=== PATIENT | male | born 1990 | race Hispanic/Latino ===

== ENCOUNTER 2020-10-27 17:16 | Emergency (ER) | payer OTHER ==
[~2020-10-27] VITALS: Ht 177.8 cm; Wt 113.8 kg
[2020-10-27 19:06] LABS: BASO # 0.1 10^3/uL (0.0-0.2); BASO % 0.7 % (0.0-1.0); EOS # 0.1 10^3/uL (0.0-0.5); EOS % 1.1 % (0.0-3.0); HEMATOCRIT 44.5 % (42.0-52.0); HEMOGLOBIN 14.6 g/dl (13.5-17.5); LYMPH # 2.5 10^3/uL (1.5-5.0); LYMPH % 33.8 % (24.0-44.0); MEAN CORPUSCULAR HGB CONC 32.8 g/dl (32.0-36.5); MEAN CORPUSCULAR VOLUME 82.3 fl (80.0-96.0); MONO # 0.7 10^3/uL (0.0-0.8); MONO % 9.8 % (0.0-5.0); NEUTROPHILS % 54.2 % (36.0-66.0); PLATELET COUNT, AUTOMATED 247 10^3/uL (150-450); RED BLOOD COUNT 5.41 10^6/uL (4.30-6.10); WHITE BLOOD COUNT 7.3 10^3/uL (4.0-10.0)
--- NOTE | 2020-10-27 19:07 | REP ---
INDICATION: chest pressure. COMPARISON: No comparison study. TECHNIQUE: Portable upright AP chest radiograph. FINDINGS: The lungs are well inflated and free of infiltrate. Pleural angles are sharp. Heart size is normal. Pulmonary vasculature is not increased. IMPRESSION: No active disease. <Electronically signed by Dajuan Arevalo > 10/27/20 2182
--- NOTE | 2020-10-27 19:20 | ECGEPIP ---
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
[2020-10-27] MEDS ORDERED: NS 1,000 ML IV ONE ×2 (20:00→22:15)
[2020-10-27] MEDS ORDERED: ISOVUE-370 76% 100ML VIAL As Ordered ONE (20:05)
[2020-10-27] MEDS ORDERED: KETOROLAC 30 MG/ML 1ML VIAL IV ONE (20:15)
--- NOTE | 2020-10-27 21:53 | REPVR ---
PROCEDURE INFORMATION: Exam: CT Angiography Chest With Contrast Exam date and time: 10/27/2020 8:56 PM Age: 30 years old Clinical indication: Chest pain TECHNIQUE: Imaging protocol: Computed tomographic angiography of the chest with intravenous contrast. 3D rendering (Not supervised by radiologist): MIP and/or 3D reconstructed images were created by the technologist. Radiation optimization: All CT scans at this facility use at least one of these dose optimization techniques: automated exposure control; mA and/or kV adjustment per patient size (includes targeted exams where dose is matched to clinical indication); or iterative reconstruction. Contrast material: ISOVUE 370; Contrast volume: 75 ml; Contrast route: INTRAVENOUS (IV); COMPARISON: CO PORTABLE CHEST X-RAY 10/27/2020 6:33 PM FINDINGS: Pulmonary arteries: No central pulmonary embolism is seen. Evaluation of some peripheral pulmonary arteries is limited due to excessive motion. Aorta: Unremarkable. No aortic aneurysm. No aortic dissection. Lungs: Unremarkable. No consolidation. No masses. Pleural spaces: Unremarkable. No pneumothorax. No pleural effusion. Heart: Unremarkable. No cardiomegaly. No pericardial effusion. Lymph nodes: Unremarkable. No enlarged lymph nodes. Bones/joints: Unremarkable. No acute fracture. Soft tissues: Unremarkable. IMPRESSION: No acute findings. Electronically signed by: Julien Rendon On 10/27/2020 21:52:59 PM
[2020-10-27 22:43] VITALS: O2SAT 99
[2020-10-27 22:55] VITALS: BP 130/93
--- NOTE | 2020-10-28 20:22 | ECGEPIP ---
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
== END 2020-10-27 23:01 | disposition home or self-care (01) ==
LOC: M ED 17:16
DX: I95.1 Orthostatic hypotension (principal); I45.10 Unspecified right bundle-branch block; I10 Essential (primary) hypertension
CPT/HCPCS: 71045; 71275; 80047; 84484; 85025; 85379; 93005; 96361; 96374; 99284; J1885; Q9967

== ENCOUNTER 2020-11-03 10:28 | Emergency (ER) | payer OTHER ==
[~2020-11-03] VITALS: Ht 180.3 cm; Wt 109.1 kg
[2020-11-03] MEDS ORDERED: GI COCKTAIL 50ML BTL(HYOSCYAMINE/MAALOX/LIDOCAINE VISCOUS)(1:3:1) PO ONE (11:15)
--- NOTE | 2020-11-03 11:37 | REP ---
INDICATION: CHEST PAIN. COMPARISON: Comparison chest x-ray 27 October 2020. TECHNIQUE: Portable upright AP chest radiograph. FINDINGS: The lungs are well inflated and free of infiltrate. Pleural angles are sharp. Heart size is normal. Pulmonary vasculature is not increased. Monitoring electrodes and a metallic change overlie the chest. IMPRESSION: No active disease. <Electronically signed by Dajuan Arevalo > 11/03/20 2085
[2020-11-03 11:39] LABS: BASO % 0.5 % (0.0-1.0); EOS # 0.1 10^3/uL (0.0-0.5); EOS % 2.2 % (0.0-3.0); HEMATOCRIT 43.9 % (42.0-52.0); HEMOGLOBIN 14.3 g/dl (13.5-17.5); LYMPH # 1.7 10^3/uL (1.5-5.0); LYMPH % 29.6 % (24.0-44.0); MEAN CORPUSCULAR HEMOGLOBIN 26.8 pg (27.0-33.0); MEAN CORPUSCULAR HGB CONC 32.6 g/dl (32.0-36.5); MEAN CORPUSCULAR VOLUME 82.4 fl (80.0-96.0); MONO # 0.5 10^3/uL (0.0-0.8); MONO % 7.7 % (0.0-5.0); NEUTROPHILS # 3.5 10^3/uL (1.5-8.5); NEUTROPHILS % 59.7 % (36.0-66.0); PLATELET COUNT, AUTOMATED 243 10^3/uL (150-450); RED BLOOD COUNT 5.33 10^6/uL (4.30-6.10); WHITE BLOOD COUNT 5.8 10^3/uL (4.0-10.0)
[2020-11-03 11:50] LABS: INR 0.94; PROTHROMBIN TIME 12.8 SECONDS (12.5-14.3)
[2020-11-03 11:51] LABS: PARTIAL THROMBOPLASTIN TIME 27.1 SECONDS (24.2-38.5)
[2020-11-03 11:53] LABS: D-DIMER QUANT 479.95 ng/ml (<500)
[2020-11-03 12:18] LABS: ALBUMIN 4.1 GM/DL (3.2-5.2); ALT/SGPT 36 U/L (12-78); BILIRUBIN,DIRECT 0.2 MG/DL (0.0-0.2); BILIRUBIN,TOTAL 0.7 MG/DL (0.2-1.0); BLOOD UREA NITROGEN 16 MG/DL (7-18); CALCIUM LEVEL 9.4 MG/DL (8.5-10.1); CARBON DIOXIDE LEVEL 29 MEQ/L (21-32); CHLORIDE LEVEL 108 MEQ/L (98-107); CK-MB VALUE MASS < 1.0 NG/ML (<3.6); CPK CREATINE PHOSPHOKINASE 109 U/L (39-308); CREATININE FOR GFR 0.93 MG/DL (0.70-1.30); FREE T4 1.02 NG/DL (0.76-1.46); GLOMERULAR FILTRATION RATE > 60.0 (>60); GLUCOSE, FASTING 92 MG/DL (70-100); LIPASE 91 U/L (73-393); MB/CK RELATIVE INDEX 0.92 (< OR =4); NT-PRO BNP 11 PG/ML (<125); POTASSIUM SERUM 4.1 MEQ/L (3.5-5.1); SODIUM LEVEL 142 MEQ/L (136-145); TOTAL PROTEIN 7.7 GM/DL (6.4-8.2); TROPONIN I < 0.02 NG/ML (< 0.10)
[2020-11-03] MEDS ORDERED: METAL LOCK LOOP XX ONE (12:49)
[2020-11-03] MEDS ORDERED: KETOROLAC 30 MG/ML 1ML VIAL IV ONE (13:45)
[2020-11-03 15:46] LABS: CK-MB VALUE MASS < 1.0 NG/ML (<3.6); CPK CREATINE PHOSPHOKINASE 106 U/L (39-308); MB/CK RELATIVE INDEX 0.94 (< OR =4); TROPONIN I < 0.02 NG/ML (< 0.10)
[2020-11-03] MEDS ORDERED: KETO10TAB PO ×2 (16:55→17:19)
[2020-11-03] MEDS ORDERED: SUCR1TA PO ×2 (16:55→17:19)
[2020-11-03] MEDS ORDERED: OMEP40CA97 PO ×2 (16:55→17:19)
[2020-11-03 17:11] VITALS: BP 137/74
--- NOTE | 2020-11-04 07:33 | ECGEPIP ---
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
--- NOTE | 2020-11-04 07:40 | ECGEPIP ---
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
== END 2020-11-03 17:18 | disposition home or self-care (01) ==
LOC: M ED 10:28 → EDBD 10:28 → M ED 17:18
DX: R07.9 Chest pain, unspecified (principal); I45.10 Unspecified right bundle-branch block; I10 Essential (primary) hypertension
CPT/HCPCS: 71045; 80048; 80076; 82550; 82553; 83690; 83880; 84439; 84443; 84484; 85025; 85379; 85610; 85730; 93005; 93041; 94760; 96374; 99285; J1885

== ENCOUNTER → 2020-11-15 | Outpatient (CLI) | payer OTHER ==
[~2020-11-15] MED LIST: KETO10TAB PO; OMEP40CA97 PO; SUCR1TA PO
--- NOTE | 2020-11-16 15:35 | SLEEPHOME ---
DATE: 11/15/2020 ORDERED BY: Pramod Gambino MD Diagnostic home sleep testing was performed due to concern for the obstructive sleep apnea syndrome. For testing, a nocturnal T3 respiratory monitoring device was used. Continuous record was made of pulse, oxygen saturation, air flow, chest and abdominal strain, and body position. Nine hours and 54 minutes of data were reviewed. There were 6 hours and 21 minutes marked as time in bed. During the interval marked time in bed, there were 38 respiratory events identified of 10 seconds in duration or greater for a respiratory event index of 6. The events were primarily obstructive. Baseline pulse rate was 64. Pulse rate ranged 50 to 186. Baseline saturation was 94%. Saturations fell to 83% and testing was performed in both the supine and nonsupine positions. IMPRESSION: Abnormal home sleep testing with repetitive respiratory events and oxygen desaturations to 83% with a respiratory event index of 6 is consistent with the obstructive sleep apnea syndrome. RECOMMENDATION: The patient should be encouraged to undergo a formal sleep evaluation.
== END ==
LOC: M SLEEP HO 10:26
PROVIDERS: ATTEND Internal Medicine Cardiovascular Disease
DX: R06.83 Snoring (principal)

== ENCOUNTER → 2021-01-03 | Outpatient (REF) | payer OTHER ==
[2021-01-03 13:18] LABS: SEMEN APPEARANCE OPAQUE (OPAQUE)
[2021-01-03 13:19] LABS: SEMEN VISCOSITY LIQUID (LIQUID); SEMEN VOLUME 1.2 ml (2.0-5.0); WBC CONCENTRATION >1 M/ml (<=1 M/ml)
[2021-01-03 13:20] LABS: SPERM CONCENTRATION 13.8 M/ml (>=15.0)
== END ==
LOC: M SMT 13:10
PROVIDERS: ATTEND Obstetrics & Gynecology
DX: N46.8 Other male infertility (principal)

== ENCOUNTER → 2021-07-12 | Outpatient (CLI) | payer OTHER ==
[~2021-07-12] MED LIST changes: +OMEP40CA4 PO; -OMEP40CA97 PO; +ZITHTAB2 PO
--- NOTE | 2021-07-12 09:55 | REP ---
INDICATION: RUQ PAIN COMPARISON: None. TECHNIQUE: Real time calvillo scale ultrasound examination using curved array transducer. FINDINGS: Liver is normal in contour, size, and echogenicity without focal hepatic lesions identified. Pancreas is incompletely evaluated due to interposed bowel gas. The gallbladder is normal and without gallstones, wall thickening, or pericholecystic fluid. No biliary ductal dilatation is appreciated and the common bile duct measures 3.0 mm diameter. Right kidney is normal in reniform shape without hydronephrosis and measures 11.4 x 6.5 x 7.5 cm. No ascites in the visualized right upper quadrant. IMPRESSION: Normal limited right upper quadrant ultrasound <Electronically signed by Pablo Riggins > 07/12/21 0936
== END ==
LOC: M RAD 07:07
PROVIDERS: ATTEND Physician Assistant Medical
DX: R10.11 Right upper quadrant pain (principal)

== ENCOUNTER 2021-07-16 17:53 | Emergency (ER) | payer OTHER ==
[~2021-07-16] VITALS: Ht 177.8 cm; Wt 117.5 kg
--- OUTSIDE RECORDS SUMMARY | 2021-07-16 17:57 | CCD | Continuity of Care Document ---
Author Author Joe CLEVELAND RPA Organization Unknown Address [address] [place] [address], [address] [place] [address] Phone [phone] Care Team Providers Care Animator Name Role Phone Parmjit Valera P.A.-C. AUTM [phone] Franca Martínez AUTM [phone] Problems Active Problems Provider Date Essential hypertension KASHMIR Burk Onset: Social History Type Date Description Comments Sex Unknown ETOH Use Denies alcohol use Tobacco Use Start: Unknown Non Smoker Allergies, Adverse Reactions, Alerts Description No Known Drug Allergies Medications Active Medications SIG Qnty Indications Ordering Provide r Date Colace 100mg Capsules take one capsule by mouth daily. 30caps K21.9 Pramod Manley MD 06/28/2021 Lisinopril-Hydrochlorothiazide 20-12.5mg Tablets 1tab qd Unknown Naproxen 250mg Tablets prn Unknown Methocarbamol 500mg Tablets 1 tab qd Unknown Omeprazole 40mg Capsules DR 1 cap qd Unknown Ondansetron HCL 4mg Tablets 1tab qd prn Unknown Immunizations Description No Information Available Vital Signs Date Vital Result Comment 06/28/2021 1:56pm BP Systolic 124 mmHg BP Diastolic 82 mmHg Height 70 inches 5'10" Weight 256.00 lb BMI (Body Mass Index) 36.7 kg/m2 [place] Body Weight 166 lb Weight 116.122 kg BSA (Body Surface Area) 2.32 m2 Results Description No Information Available Procedures Description No Information Available Medical Devices Description No Information Available Encounters Description No Information Available Assessments Date Code Description Provider 06/28/2021 K21.9 Gastro-esophageal reflux disease without esophagitis Yee Patel SHRUTHI [facility] 06/28/2021 R07.9 Chest pain, unspecified Yee Patel KASHMIR [place] 06/28/2021 R10.11 Right upper quadrant pain Jo Patel SHRUTHI [facility] 06/28/2021 F45.8 Other somatoform disorders Елена rosenbaum KASHMIR Powell Plan of Treatment 06/28/2021 - [facility] K21.9 Gastro-esophageal reflux disease without esophagitis * R07.9 Chest pain, unspecified * R10.11 Right upper quadrant pain * F45.8 Other somatoform disorders * * New Medication:* Colace 100 mg * New Orders:* Endoscopy, Ordered: 06/28/21 * Comments:* Will arrange for upper endoscopy. Reviewed risks and benefits of the procedure, as well as other options, with the patient. Prep for this procedure was discussed with patient. Patient verbalized understanding of all of the above and is in agreement to proceed. Patient will seek medical attention for any acute changes. Will monitor. * Follow up:* As scheduled, sooner if needed. Functional Status Description No Information Available Mental Status Description No Information Available Referrals Refer to Reason for Referral Status Appt Date Marko Wetzel M.D. GERD 1 NEW 04/28 TO 10/25, 3 ESTABLISH 04/28/21 TO 04/28/22 Scheduled 06/28/2021 [facility] [address] [facility], [place] [id number] [phone]
--- OUTSIDE RECORDS SUMMARY | 2021-07-16 17:57 | CCD | Continuity of Care Document ---
Author Author Joe CLEVELAND RPA Organization Unknown Address [address] [place] [address], [address] [place] [address] Phone [phone] Care Team Providers Care Tar Roofer Name Role Phone Parmjit Valera P.A.-C. AUTM [phone] rFanca Martínez AUTM [phone] Problems Active Problems Provider Date Essential hypertension [...] lb BMI (Body Mass Index) 36.7 kg/m2 [place] Body Weight 166 lb Weight 116.122 kg [...] of Treatment 06/28[facility]2021 [facility] K[facility]9 Gastro-esophageal reflux disease without esophagitis * [...] 3 ESTABLISH 04/28/21 TO 04/28/22 Scheduled 06/28/2021 [facility] [address] [facility], [place] [id number] [phone]
--- OUTSIDE RECORDS SUMMARY | 2021-07-16 17:58 | CCD ---
Author Author [facility] Organization [facility] Address Unknown Phone Unavailable Care Team Providers Care Mainspring Torque Tester Name Role Phone Taran WEATHERS Unavailable Unavailable DETTMAN L LARRY Unavailable Unavailable TURRIN, REJI Unavailable Unavailable TURRIN, REJI Unavailable Unavailable TURRIN, REJI Unavailable Unavailable TURRIN, REJI Unavailable Unavailable ANTECOL, Ruben MCCARTHY MD Unavailable Unavailable ANTECOL, Ruben MCCARTHY MD Unavailable Unavailable ANTECOL, Ruben MCCARTHY MD Unavailable Unavailable ANTECOL, Ruben MCCARTHY MD Unavailable Unavailable ANTECOL, Ruben MCCARTHY MD Unavailable Unavailable ANTECOL, Ruben MCCARTHY MD Unavailable Unavailable ANTECOL, Ruben MCCARTHY MD Unavailable Unavailable ANTECOLRuben MD Unavailable Unavailable ANTECOL, Ruben MCCARTHY MD Unavailable Unavailable ANTECOLRuben MD Unavailable Unavailable ANTECOLRuben MD Unavailable Unavailable ANTECOLRuben MD Unavailable Unavailable ANTECOLRuben MD Unavailable Unavailable ANTECOLRuben MD Unavailable Unavailable ANTECOLRuben MD Unavailable Unavailable ANTECOLRuben MD Unavailable Unavailable ANTECOLRuben MD Unavailable Unavailable ANTECOLRuben MD Unavailable Unavailable ANTECOLRuben MD Unavailable Unavailable ANTECOLRuben MD Unavailable Unavailable ANTECOLRuben MD Unavailable Unavailable ANTECOLRuben MD Unavailable Unavailable ANTECOLRuben MD Unavailable Unavailable ANTECOLRuben MD Unavailable Unavailable ANTECOLRuben MD Unavailable Unavailable ANTECOL, Ruben MCCARTHY MD Unavailable Unavailable ANTECOLRuben MD Unavailable Unavailable ANTECOLRuben MD Unavailable Unavailable ANTECOL, Ruben MCCARTHY MD Unavailable Unavailable ANTECOL, Ruben MCCARTHY MD Unavailable Unavailable ANTECOLRuben MD Unavailable Unavailable ANTECOL, Ruben MCCARTHY MD Unavailable Unavailable ANTECOL, Ruben MCCARTHY MD Unavailable Unavailable ANTECOL, Ruben MCCARTHY MD Unavailable Unavailable ANTECOL, Ruben MCCARTHY MD Unavailable Unavailable ANTECOL, Ruben MCCARTHY MD Unavailable Unavailable ANTECOL, Ruben MCCARTHY MD Unavailable Unavailable ANTECOL, Ruben MCCARTHY MD Unavailable Unavailable ANTECOL, Ruben MCCARTHY MD Unavailable Unavailable ANTECOL, Ruben MCCARTHY MD Unavailable Unavailable ANTECOL, Ruben MCCARTHY MD Unavailable Unavailable ANTECOL, Ruben MCCARTHY MD Unavailable Unavailable ANTECOL, Ruben MCCARTHY MD Unavailable Unavailable ANTECOL, Ruben MCCARTHY MD Unavailable Unavailable ANTECOL, Ruben MCCARTHY MD Unavailable Unavailable ANTECOL, Ruben MCCARTHY MD Unavailable Unavailable ANTECOL, Ruben FABIO MD Unavailable Unavailable ANTECOL, Ruben FABIO GUERRERO Unavailable Unavailable ANTECOL, Ruben FABIO GUERRERO Unavailable Unavailable ANTECOL, Ruben FABIO GUERRERO Unavailable Unavailable ANTECOL, Ruben MCCARTHY MD Unavailable Unavailable ANTECOL, Ruben FABIO GUERRERO Unavailable Unavailable ANTECOL, Ruben FABIO GUERRERO Unavailable Unavailable ANTECOL, Ruben FABIO GUERRERO Unavailable Unavailable Re-disclosure Warning The records that you are about to access may contain information from federally-assisted alcohol or drug abuse programs. If such information is present, then the following federally mandated warning applies: This information has been disclosed to you from records protected by federal confidentiality rules (42 CFR part 2). The federal rules prohibit you from making any further disclosure of this information unless further disclosure is expressly permitted by the written consent of the person to whom it pertains or as otherwise permitted by 42 CFR part 2. A general authorization for the release of medical or other information is NOT sufficient for this purpose. The Federal rules restrict any use of the information to criminally investigate or prosecute any alcohol or drug abuse patient.The records that you are about to access may contain highly sensitive health information, the redisclosure of which is protected by Article 27-F of the [facility] Public Health law. If you continue you may have access to information: Regarding HIV / AIDS; Provided by facilities licensed or operated by the [facility] Office of Mental Health; or Provided by the [facility] Office for People With Developmental Disabilities. If such information is present, then the following [facility] mandated warning applies: This information has been disclosed to you from confidential records which are protected by state law. State law prohibits you from making any further disclosure of this information without the specific written consent of the person to whom it pertains, or as otherwise permitted by law. Any unauthorized further disclosure in violation of state law may result in a fine or long term sentence or both. A general authorization for the release of medical or other information is NOT sufficient authorization for further disc losure. Encounters Encounter Providers Location Date Indications Data Source(s ) Emergency Attender: REJI YANGConsultant: LARRY BARRETO 05/02/2021 02:06:00 PM EDT - 05/02/2021 07:35:00 PM EDT [facility] Patient discharged. Outpatient Attender: LARRY MADRIDANConsultant: LARRY MADRID AN 03/14/2021 07:17:00 AM EDT - 03/14/2021 08:17:00 AM EDT [facility] Patient discharged. Outpatient Attender: FABIO LOPEZ MD Main Office 11/05/2020 09:00:00 AM EST [facility] ([facility]) Immunizations Vaccine Date Status Description Data Source(s) COVID-19 VACCINE Pfizer 11/10/2020 12:00:00 AM EST completed [facility] Vaccine Series Complete: NOThis Data was Submitted to [facility] Via [employer]. Medications Medication Brand Name Start Date Product Form Dose Route Admi nistrative Instructions Pharmacy Instructions Status Indications Reaction Description Data Source(s) Docusate Sodium 100 MG Oral Capsule [Colace] Colace 12:00:00 AM EDT ORAL active [facility] ( [facility], ) Lisinopril 10 MG Oral Tablet Lisinopril 12/26/2020 12:00:00 AM EDT ORAL active [facility] ([facility]) Omeprazole 40 MG Delayed Release Oral Capsule Omeprazole 11/04/2020 12:00:00 AM EST ORAL active [facility] ([facility]) Ketorolac Tromethamine 10 MG Oral Tablet Ketorolac Trometham ine 11/04/2020 12:00:00 AM EST ORAL active [facility] ([facility]) Sucralfate 1000 MG Oral Tablet Sucralfate 11/04/2020 12:00:00 AM EST ORAL active [facility] ([facility]) Insurance Providers Payer name Policy type / Coverage type Policy ID Covered democrat ID Covered democrat's relationship to mckee Policy Mckee Plan Information [facility] [employer] [employer] [id number] [facility] O/P [id number] Problems, Conditions, and Diagnoses Code Display Name Description Problem Type Effective Dates Data Source(s) I10 Essential (primary) hypertension Essential (primary) h ypertension Diagnosis 05/02/2021 02:06:00 PM EDT [facility] I4519 Other right bundle-branch block Other right bundle-bra nch block Diagnosis 05/02/2021 02:06:00 PM EDT [facility] K219 Gastro-esophageal reflux disease without esophagitis Gastro-esophageal reflux disease without esophagitis Diagnosis 05/02/2021 02:06:00 PM ED T [facility] R0789 Other chest pain Other chest pain Diagnosis 05/02/2021 02 :06:00 PM EDT [facility] R2241 Localized swelling, mass and lump, right lower limb Localized swelling, mass and lump, right lower limb Diagnosis 03/14/2021 07:17:00 AM EDT [facility] G68350 Pain in right lower leg Pain in right lower leg Diagno sis 03/14/2021 07:17:00 AM EDT [facility] [id number] Essential hypertension Essential hypertension Problem 06/10/2021 12:00:00 AM EDT [facility] ([facility], ) Surgeries/Procedures Procedure Description Date Indications Data Source(s) Polysomnography Sleep Staging 4+ Parameters W/Cpap 03/08/2021 12:00:00 AM EDT [facility] ([facility], ) XTRNL ECG < 48 HR RECORDING 03/03/2021 12:00:00 AM EDT [facility] ([facility]) XTRNL ECG CONTINUOUS RHYTHM PHYS REVIEW&INTERPJ 2020 12:00:00 AM EDT [facility] ([facility]) Polysomnography Sleep Staging 4+ Parameters 01/17/2021 12:00:00 AM EDT [facility] ([facility], ) CV STRS TST XERS&/OR RX CONT ECG PHYS SI&R 01/05/2021 12:00:00 AM EDT [facility] ECHO TTHRC R-T 2D W/WOM-MODE COMPL SPEC&COLR DOP 12/28 12:00:00 AM EDT [facility] Ambulatory Blood Pressure Monitoring;Recording,Scanning,Inte r,RPT 12/27/2020 12:00:00 AM EDT [facility]) ECG ROUTINE ECG W/LEAST 12 LDS W/I&R 11/05/2020 12:00: 00 AM EST [facility] Results ID Date Data Source [id number] 05/24/2021 03:18:00 PM EDT [facility] Name Value Range Interpretation Code Description Data Reina rce(s) Supporting Document(s) SARS coronavirus 2 RNA Not Detected [facility] [place] This lab was ordered by [facility] and reported by [employer]. ID Date Data Source [id number] 05/03/2021 08:18:00 AM EDT [facility] [address] [place] [address] PHONE: [phone] FAX: [phone] Name .................. : SELENE YE Acct Number.................. : [id number] [facility]......... [facility] Number ................... : [id number] Stay type ............. : E/R Discharge Date......... ... : Admit Date ......... : 05/02/21 Admit Phys .................... : CELIA VALENZUELA Date of ....... : 1990 Family Phys ................... : JASIEL LICONA Phone .................. : [phone] Age ................................ : 30 Film# .................. .:[id number] Sex ................................. : M Unsigned transcriptions are preliminary reports and do not represent a medical or legal document CT CTA CHEST NON-CORONARY Chanel Cha 12371 COMPLETE:05/02/21 17:57 [facility] [address] Reason(s): CP, high d-dimer CT CHEST WITH IV CONTRAST INDICATION: Chest pain. Elevated d-dimer. Rule out PE. COMPARISON: None CONTRAST: 75 cc Isovue-370 One or more of the following dose reduction techniques were utilized in effectively lowering the patient's radiation dose for this examination: Automated Exposure Control, Adjustment of the mA and/or kV according to patient size, or Iterative reconstruction. FINDINGS: VASCULAR: There is adequate visualization of the central pulmonary arterial tree to the segmental branch level. No large central emboli. Peripheral branches are less well enhanced limiting sensitivity. No s mall peripheral emboli are identified. No thoracic aortic aneurysm. Allowing for pulsation artifact dissection. LUNGS: Basilar airspace opacity minimal on the left typical of atelectasis. More confluent in the right posterior lateral costophrenic angle probably atelectasis with pneumonia not excluded. PLEURA AND PERICARDIUM: No pleural or pericardial effusions. MEDIASTINUM AND SHOBHA: Hazy density anterior mediastinum likely residual thymic tissue. No adenopathy. CHEST WALL: No axillary adenopathy. Skeletal structures are within normal limits. Mild multilevel degenerative disc change. Small sclerotic focus in the posterior right T6 vertebral body most likely benign bone island. Mild T10 superior endplate compression does not appear acute. Page 1 of 2 [facility] [address] [place] [address] PHONE: [phone] FAX: [phone] Name .................. : SELENE YE Acct Number.................. : [id number] ROOM. ................. : TR-08 MR Number ................... : [id number] Stay type ............. : E/R Discharge Date......... ... : Admit Date ......... : 05/02/21 Admit Phys .................... : CELIA VALENZUELA Date of ....... : 1990 Family Phys ................... : JASIEL DA Phone .................. : [phone] Age ................................ : 30 Film# .................. .:[id number] Sex ............... .................. : M Unsigned transcriptions are preliminary reports and do not represent a medical or legal document CT CTA CHEST NON-CORONARY W C 86689 COMPLETE:05/02/21 17:57 [facility] 41435 Reason(s): CP, high d-dimer UPPER ABDOMEN: Unremarkable. IMPRESSION: No pulmonary embolic disease is identified. Bibasilar airspace opacity probably atelectasis. Slightly more confluent on the right with pneumonia not excluded definitively. Electronically Reviewed and Signed By Santi Wilson MD , 05/03/21 08:18, JOHNB Transcribe Initials: KAI , Transcribe Date: 05/02/21 19:18, Dictation Date: Copy for: EMERGENCY DEPT via modem Copy for: 710 MED REC DISCHARGED Page 2 of 2 Name Value Range Interpretation Code Description Data Reina rce(s) Supporting Document(s) ID Date Data Source [id number] 05/03/2021 08:17:00 AM EDT [facility] [address] [place] [address] PHONE: [phone] FAX: [phone] Name .................. : SELENE YE Acct Number.................. : [id number] ROOM. ................. : [address] Number ................... : [id number] Stay type ............. : E/R Discharge Date......... ... : Admit Date ......... : 05/02/21 Admit Phys .................... : CELIA VALENZUELA Date of ....... : 1990 Family Phys ................... : JASIEL DA Phone .................. : [phone] Age ................................ : 30 Film# .................. .:[id number] Sex ................................. : M Unsigned transcriptions are preliminary reports and do not represent a medical or legal document CHEST PORTABLE 66170 COMPLETE:05/02/21 18:02 AICHA 99645 Reason(s): Chest Pain PORTABLE CHEST SINGLE VIEW 2:37 PM HISTORY: Chest pain COMPARISON: None. FINDINGS: Mediastinal and hilar structures are normal. Cardiac silhouette is unremarkable. Low inspiratory volume. No pneumonia or edema. No pneumothorax or pleural effusion. IMPRESSION: Low inspiratory volume otherwise unremarkable. Electronically Reviewed and Signed By Santi Wilson MD , 05/03/21 08:17, SCB Transcribe Initials: KAI , Transcribe Date: 05/02/21 18:49, Dictation Date: Copy for: EMERGENCY DEPT via modem Copy for: 710 MED REC DISCHARGED Page 1 of 1 Name Value Range Interpretation Code Description Data Reina rce(s) Supporting Document(s) ID Date Data Source [id number] 05/02/2021 02:06:00 PM EDT [facility] 1 OrderSheet [facility] Emergency Department [address] [place] [address] Phone #: ext- [phone] 05/02/2021 14:03 Patient: EPHRAIM MORTON Sex: M : 1990 Age: 30yWEIGHT:108.8 kg (S) HEIGHT:70 inches (S) BMI:34.4ALLERGIES: No Known Drug AllergyCHIEF COMPLAINT: chest painDIAGNOSIS: Atypical chest pain, Gastroesophageal reflux diseaseLAB ORDERSOrder Description Priority Entered Acknowledged InitialedCBC w Diff STAT 14:18 05/02/2021 14:52 Reji Morris RN, M.D.;CMP STAT 14:05/02/2021 14:52 Reji Morris RN, M.D.;Lipase STAT 14:05/02/2021 14:52 Reji Morris RN, M.D.;PT/PTT STAT 14:05/02/2021 14:52 Reji Morris RN, M.D.;Troponin-T STAT 14:05/02/2021 14:52 Reji Morris RN, M.D.;D-Dimer STAT 14:18 05/02/2021 14:52 Reji Morris RN, M.D.;Troponin-T STAT 17:24 05/02/2021 17:26 Reji Morris RN, M.D.;DIAGNOSTIC STUDY ORDERSOrder Description Priority Entered Acknowledged InitialedChest Portable 1 STAT 14:18 05/02/2021 14:52 Reji Graham RN(Oxygen?(No)) Patti; Reason for Study: Chest PainCT CTA CHEST STAT 15:09 05/02/2021 15:11 Simba(NONCOR) Reji Thomas RNINC PP Patti; 2 OrderSheet [facility] Emergency Department [address] [place] [address] Phone #: ext- [phone] 05/02/2021 14:03 Patient: EPHRAIM MORTON Sex: M : 1990 Age: 30y(Oxygen?(No))(IV?(Yes)) Reason for Study: CP, high d- dimerMEDICATION/IV/DRIP/FLUID ORDERSOrder Description Priority Entered Acknowledged InitialedAspirin PO 14:18 05/02/2021 14:55 Ash Millanble 81 mg Turrin, Reji R.N.324 mg M.D.;Ativan PO 1 mg 14:18 05/02/2021 14:56 Alexandra Millanrin, Reji R.N. M.D.;Protonix IVPB 40 14:18 05/02/2021 Cancelled: Duplicate Order 14:18 Turrin,mg with Dextrose Turrin, Reji Reji M.D.100 ml spike bag M.D.;(D5W)Protonix IV Push 40 14:18 05/02/2021 14:56 Alexandra Millanmg (in 10 mL NS, Turrin, Reji R.N.administer over at M.D.;least 2 minutes,NOW x1)GENERAL ORDERSOrder Description Priority Entered Acknowledged InitialedBlood Pressure 14:18 05/02/2021 14:30 [facility] EDMonitor Reji Yang Tiffany ER M.D.; Otrt3Tolzkbi Monitor 14:18 05/02/2021 14:30 [facility](continuous) Reji Yang Tiffany ER M.D.; Eluh8QNO 1 4:18 05/02/2021 14:30 [facility] ED Reji Yang Tiffany ER M.D.; Hbiq9VZA 14:18 05/02/2021 14:43 Alexandra Millan Riccardo R.N. M.D.;Obtain Old EKG 14:18 05/02/2021 14:43 Alexandra Millan Riccardo R.N. M.D.;Obtain Old Records 14:18 05/02/2021 14:43 Alexandra Millan Riccardo R.N. M.D.;Oxygen titrate to 14:18 05/02/2021 14:43 Alexandra Millan OrderSheet [facility] Emergency Department [address] [place] [address] Phone #: ext- [phone] 05/02/2021 14:03 Patient: EPHRAIM MORTON Sex: M : 1990 Age: 30y92% Reji Yang R.N., M.D.;Pulse oximeter 14:18 05/02/2021 14:30 [facility] ED(Continuous) Reji Yang Tiffany ER M.D.; Xpvq3Gmbrjf Lock 14:18 05/02/2021 14:56 Alexandra Millan Riccardo R.N. M.D.;Vitals 14:18 05/02/2021 14:30 [facility] Reji Yang Tiffany ER M.D.; Tech1[Electronically signed by Lizbeth Brand R.N. (19:41 05/02/2021)][Electronically signed by Reji Yang M.D. (20:24 05/02/2021)][Electronically locked by Lizbeth Brand R.N. (19:41 05/02/2021)] Name Value Range Interpretation Code Description Data Reina rce(s) Supporting Document(s) ID Date Data Source [id number] 05/02/2021 02:06:00 PM EDT [place] [address] Medication Reconciliation Report [facility] Emergency Department [address] [place] [address] Phone #: ext- [phone] 05/02/2021 14:03 Patient: EPHRAIM MORTON Sex: M : 1990 Age: 30yWeight: 108.8 kgHeight/Length: 70 in.BMI: 34.4ALLERGIES: No Known Drug AllergyThe patient's Home Medications are listed below:CONTINUE TAKING THE FOLLOWING MEDICATIONS: Lisinopril-hydroCHLOROthiazide Oral, unsure of dose. started last week Naproxen Oral, daily Omeprazole OralThe source(s) of the original Home Medication information:Not obtained.The following Medications were given to the patient in the Emergency Department:ASPIRIN CHEWABLE 81 MG [PO] PO 324 mg, administered: 14:55 1Ativan [PO] PO 1 mg, administered: 14:55 1PROTONIX [IVP] IVP 40 mg, administered: 14:56 05/02/2021The following Medications were prescribed to the patient:None. Name Value Range Interpretation Code Description Data Reina rce(s) Supporting Document(s) ID Date Data Source [id number] 05/02/2021 02:06:00 PM EDT [facility] 1 Medication Administration Record [facility] Emergency Department [address] [place] [address] Phone #: ext- [phone] 05/02/2021 14:03 Patient: EPHRAIM MORTON Sex: M : 1990 Age: 30yWeight: 108.8 kgHeight/Length: 70 inBMI: 34.4ALLERGIES: No Known Drug Allergy Date/Time Medication Administered Medication OrderedGiven ASPIRIN CHEWABLE 81 MG [PO] Aspirin PO Chewable 81 mg 02475:55 05/02/2021 Dose: 324 mg Tablets PO mgAlexandra Millan R.N.Given ATIVAN [PO] (LORAZEPAM) Ativan PO 1 mg14:55 05/02/2021 Dose: 1 mg Tablets Alexandra Gallego R.N.Given PROTONIX [IVP] (PANTOPRAZOLE Protonix IV Push 40 mg (in 10 mL14:56 05/02/2021 SODIUM) NS, administer over at least 2RAlexandra collier R.N. Dose: 40 mg IVP minutes, NOW x1) Site: #1 left Name Value Range Interpretation Code Description Data Reina rce(s) Supporting Document(s) ID Date Data Source [id number] 05/02/2021 02:06:00 PM EDT [facility] 1 General Instructions [facility] Emergency Department [address] [place] [address] Phone #: ext- [phone] 05/02/2021 14:03 Patient: EPHRAIM MORTON Sex: M : 1990 Age: 30yAtypical chest pain (non-cardiac).Gastroesophageal reflux disease. No esophagitis.INSTRUCTIONSAvoid stimulants (such as cigarettes, coffee, cold medicines, sinus medicines, street drugs). Follow a lowsalt diet and low cholesterol diet. Do not smoke. No alcohol.Warnings: Further evaluation is necessary in order to conduct further tests (CARDIOLOGY). It is veryimportant to follow up with a healthcare provider.GENERAL WARNINGS: Return or contact your physician immediately if your condition worsens orchanges unexpectedly, if not improving as expected, or if other problems arise. SPECIFICALLY, return ifyou develop chest, neck, jaw, shoulder, arm, or back pain, difficulty breathing, a fluttering sensation in yourchest, lightheadedness, fainting, excessive fatigue, or sudden sweating.Your Current Medications: Your current home medications have been reviewed.CONTINUE TAKING THE FOLLOWING MEDICATIONS:Lisinopril-hydroCHLOROthiazide Oral : unsure of dose. started last week.Naproxen Oral : daily.Omeprazole Oral.Follow-up:Return to the emergency department as needed. Follow up with a tunnel elastic operator zigzag in three days even if well.Call for an appointment. Reason for referral: evaluation and treatment. Summary of care provided topatient via paper.Understanding of the discharge ins tructions verbalized by patient. Expected course of illness, dischargeinstructions, activity level, diet, follow-up appointment and risks and benefits of treatment reviewed withpatient and spouse and understanding verbalized. Agrees to plan of care.Follow-up with: Aaron Fischer MD, Cardiology, , [address] [place] [address], [id number] Follow up in three days even if well. Call for an appointment. Reason for referral: evaluation, treatmentand STRESS TEST. Summary of care provided to patient via paper. ADDITIONAL INFORMATIONNoncardiac Chest Pain 2 General Instructions [facility] Emergency Department [address] [place] [address] Phone #: ext- [phone] 05/02/2021 14:03 Patient: EPHRAIM MORTON Sex: M : 1990 Age: 30yBased on your visit today, the healthcare provider doesn't know what is causing your chest pain. Inmost cases, people who come to the emergency room with chest pain don't have a problem with theirheart. Instead, the pain is caused by other conditions. It's important for the healthcare team to be sureyou are not having a life-threatening cause for chest pain such as: Heart attack Blood clot in the lungs Collapsed lung Ruptured esophagus Tearing of the aortaOnce these major causes have been ruled out, you may have further evaluation for nonheart causesof chest pain. These may be problems with the lungs, muscles, bones, digestive tract, nerves, ormental health. They include: Inflammation around the lungs (pleurisy) Collapsed lung (pneumothorax) Fluid around the lungs (pleural effusion) Lung cancer (a rare cause of chest pain) Inflamed cartilage between the ribs (costochondritis) Fibromyalgia 3 General Instructions [facility] Emergency Department [address] [place] [address] Phone #: ext- [phone] 05/02/2021 14:03 Patient: EPHRAIM MORTON Sex: M : 1990 Age: 30y Rheumatoid arthritis Chest wall strain Reflux Stomach ulcer Spasms of the esophagus Gall stones Gallbladder inflammation Panic or anxiety attacks Emotional distressYour condition doesn't seem serious. And your pain doesn't seem to be coming from your heart. Butsometimes the signs of a serious problem take more time to appear. Watch for the warning signslisted below.Home careFollow these guidelines when caring for yourself at home: Rest today and don't do any strenuous activity. Take any prescribed medicine as directed.Follow-up careFollow up with your healthcare provider, or as advised, if you don't start to feel better in 24 hours.Call [phone] if any of these occur: A change in the type of pain: if it feels different, becomes more severe, lasts longer, or begins to spread into your shoulder, arm, neck, jaw or back Shortness of breath or increased pain with breathing Weakness, dizziness, or fainting Rapid heart beat Crushing sensation in your chest 4 General Instructions [facility] Emergency Department [address] [place] [address] Phone #: ext- [phone] 05/02/2021 14:03 Patient: EPHRAIM MORTON Sex: M : 1990 Age: 30yWhen to seek medical adviceCall your healthcare provider right away if any of these occur: Cough with dark colored sputum (phlegm) or blood Fever of 100.4F (38C) or higher, or as directed by your healthcare provider Swelling, pain or redness in one leg [id number] [employer]. [address] [place] [address]. All rights reserved. This information is not intended as asubstitute for professional medical care. Always follow your healthcare professional's instructions.GERD (Adult) The esophagus is a tube that carries food from the mouthto the stomach. A valve (the LES, lower esophageal sphincter) at the lower end of the esophagusprevents stomach acid from flowing upward. When this valve doesn't work properly, stomach contentsmay repeatedly flow back up (reflux) into the esophagus. This is called gastroesophageal refluxdisease (GERD). GERD can irritate the esophagus. It can cause problems with pain, swallowing orbreathing. In severe cases, GERD can cause recurrent pneumonia (from aspiration or breathing inparticles) or other serious problems. 5 General Instructions [facility] Emergency Department [address] [place], [place] [id number] Phone #: ext- [phone] 05/02/2021 14:03 Patient: EPHRAIM MORTON Sex: M : 1990 Age: 30ySymptoms of reflux include burning, pressure or sharp pain in the upper abdomen or mid to lowerchest. The pain can spread to the neck, back, or shoulder. There may be belching, an acid taste inthe back of the throat, chronic cough, or sore throat, or hoarseness. GERD symptoms often occurduring the day after a big meal. They can also occur at night when lying down.Home careLifestyle changes can help reduce symptoms. If needed, your healthcare provider may prescribemedicines. Symptoms often improve with treatment, but if treatment is stopped, the symptoms oftenreturn after a few months. So most persons with GERD will need to continue treatment or gettreatment on and off.Lifestyle changes Limit or avoid fatty, fried, and spicy foods, as well as coffee, chocolate, mint, and foods with high acid content such as tomatoes and citrus fruit and juices (orange, grapefruit, lemon). Don't eat large meals, especially at night. Frequent, smaller meals are best. Don't lie down right after eating. And don't eat anything 3 hours before going to bed. Don't drink alcohol or smoke. As much as possible, stay away from second hand smoke. If you are overweight, losing weight will reduce symptoms. Don't wear tight clothing around your stomach area. If your symptoms occur during sleep, use a foam wedge to elevate your upper body (not just your head.) Or, place 4" blocks under the head of your bed. Or use 2 bed risers under your bedframe.MedicinesIf needed, medicines can help relieve the symptoms of GERD and prevent damage to the esophagus.Discuss a medicine plan with your healthcare provider. This may include one or more of the followingmedicines: Antacids to help neutralize the normal acids in your stomach. Acid blockers (Histamine or H2 blockers) to decrease acid production. Acid inhibitors (proton pump inhibitors PPIs) to decrease acid production in a different way than the blockers. They may work better, but can take a little longer to take effect.Take an antacid 30 to 60 minutes after eating and at bedtime, but not at the same time as an acidblocker.Try not to take medicines such as ibuprofen and aspirin. If you are taking aspirin for your heart or 6 General Instructions [facility] Emergency Department [address] [place] [address] Phone #: ext- [phone] 05/02/2021 14:03 Patient: EPHRAIM MORTON Sex: M : 1990 Age: 30yother medical reasons, talk to your healthcare provider about stopping it.Follow-up careFollow up with your healthcare provider or as advised by our staff.When to seek medical adviceCall your healthcare provider if any of the following occur: Stomach pain gets worse or moves to the lower right abdomen (appendix area) Chest pain appears or gets worse, or spreads to the back, neck, shoulder, or arm An [id number] trial of medicine doesn't relieve your symptoms Weight loss that can't be explained Trouble or pain swallowing Frequent vomiting (can't keep down liquids) Blood in the stool or vomit (red or black in color) Feeling weak or dizzy Fever of 100.4F (38C) or higher, or as directed by your healthcare provider [phone] [employer]. [address] [place] [address]. All rights reserved. This information is not intended as asubstitute for professional medical care. Always follow your healthcare professional's instructions. You have been given the following additional information: Chest Pain, Noncardiac GERD (Adult)(Electronically signed by Reji Yang M.D. 05/02/2021 20:24) Name Value Range Interpretation Code Description Data Reina rce(s) Supporting Document(s) ID Date Data Source [id number] 05/02/2021 02:06:00 PM EDT [facility] 1 Clinical Report - Nurses [facility] Emergency Department [address] [place] [address] Phone #: ext- [phone] 05/02/2021 14:03 Patient: EPHRAIM MORTON Sex: M : 1990 Age: 30yTRIAGEArrived by private vehicle. Historian: patient.Acuity: LEVEL 3.Chief Complaint: CHEST PAIN and SHORTNESS OF BREATH.Alert. No acute distress.Onset. (45 minutes ago). ( PT reports about 45 minutes ago he began having a stabbing pain to the rightof his sternum while he was sitting at work. He also reports SOB and dry heaving. He had a similar episodea couple months ago (seen at [facility]) and was referred to cardiology and diagnosed with sleepapnea.). 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 SEPSIS SCREEN NEGATIVE.No suspected or confirmed signs of infection present.STEFANIE COMA SCORE: 15- eyes open- spontaneous (4); best verbal response- oriented (5); bestmotor response- obeys commands (6). --14:12 05/02/21 Elena Petty R.N.14:07 05/02/21. BP: 161/100. HR: 100. RR: 18. O2 saturation: 96%. Temp: 98.9 F. Pain level now 4/10.--14:12 05/02/21 Elena Petty R.N.Weight: 108.8 kg stated. Height/Length: 70 inches Per Patient. BMI: 34.4. --14:10 05/02/21 Elena Petty R.N.MedicationsLisinopril-hydroCHLOROthiazide Oral (unsure of dose. started last week ). --14:11 05/02/21 Elena Petty R.N. Naproxen Oral, daily. --14:11 05/02/21 Elena Petty R.N. Omeprazole Oral. --15:00 05/02/21 Reji Yang M.D.AllergiesNo Known Drug Allergy. --14:11 05/02/21 Elena Petty R.N.PROBLEMS:Right bundle branch block.Hypertension.Sleep Apnea. --14:12 05/02/21 Elena Petty R.N. 2 Clinical Report - Nurses [facility] Emergency Department [address] [place] [address] Phone #: ext- [phone] 05/02/2021 14:03 Patient: EPHRAIM MORTON Sex: M : 1990 Age: 30y ADDITIONAL SURGERIES: no known surgeries. History PAST MEDICAL HX: Immunizations: up-to-date. SOCIAL HX: Never smoker. No alcohol use or drug use. He was offered HIV testing but declined and hepatitis C testing but declined. He has not traveled outside the [place] Infectious disease exposure: The patient was not exposed to C-diff, MRSA, VRE, CRE or Coronavirus. SELF HARM ASSESSMENT: Self harm assessment was performed. The patient answered "no" to the question(s) "Have you recently felt down, depressed, or hopeless?", "Do you have thoughts of harming or killing yourself?", "Do you have a plan for harming or killing yourself?", "Have you recently had thoughts about harming or killing others?", "Do you have any dangerous items in your possession?", "Have you noticed less interest or pleasure in doing things?", "Are you here because you tried to hurt yourself?" and "Have you ever tried to hurt yourself before today?". ABUSE ASSESSMENT: No report of abuse. NUTRITIONAL RISK ASSESSMENT: The nutritional risk assessment revealed no deficiencies. FUNCTIONAL ASSESSMENT: Functional assessment: no impairments noted. LEARNING NEEDS ASSESSMENT: The learning needs assessment revealed no barriers. FALL RISK ASSESSMENT: Fall risk assessment completed. No risk factors identified. SKIN INTEGRITY ASSESSMENT: Skin integrity risk assessment completed. No skin integrity risk identified. --14:12 05/02/21 Elena Petty R.N. FAMILY HX: No significant family medical history. --15:01 05/02/21 Reji Yang M.D. Interventions Identification band on patient. To treatment room. No allergy band on patient. --14:12 05/02/21 Elena Petty R .N.PHYSICAL [id number]:58 05/02/21. Ambulatory to room.GENERAL / NEURO / PSYCH: Alert. Oriented X 4.RESPIRATORY: Respirations not labored. Chest nontender. Breath sounds within normal limits.CVS: Heart sounds within normal limits. Pulses within normal limits. Capillary refill less than 2 seconds.GI / : Abdomen soft and nontender.EXTREMITIES: No lower extremity edema.SKIN: Skin is warm and dry. Skin is non-tender. --14:58 05/02/21 Simba Wilkinson RN. 3 Clinical Report - Nurses [facility] Emergency Department [address] [place] [address] Phone #: ext- [phone] 05/02/2021 14:03 --------- Patient: EPHRAIM MORTON Sex: M : 1990 Age: 30yNURSING PROGRESS NOTESEKG time: (14:03 05/02/2021). EKG was performed by a tech and shown to the ED physician. --14: Elena Petty R.N. 14:55 05/02/2021 ASPIRIN CHEWABLE 81 MG PO Tablets 324 mg given. Allergies verified and confirmed 5 rights. Information reviewed with patient including reason for taking this medication, signs of allergic reaction and precautions. Verbalizes understanding. --14:55 05/02/21 Alexandra Millan R.N. 14:55 05/02/2021 Ativan (LORazepam) PO Tablets 1 mg given. Allergies verified and confirmed 5 rights. Information reviewed with patient including reason for taking this medication, signs of allergic reaction, precautions and sedative warning. Verbalizes understanding. --14:56 05/02/21 Alexandra Millan R.N. 14:56 05/02/2021 Site #1 started via IV in the left antecubital space with an 20g angiocath, with aseptic technique and good blood return; one attempt. Saline lock flushed with 10 mL saline. --14:56 05/02/21 Alexandra Millan R.N. 14:56 05/02/2021 PROTONIX (Pantoprazole Sodium) IVP 40 mg given over 2 minute(s) via site #1. Allergies verified and confirmed 5 rights. IV patency established. IV site checked: no pain, redness, or swelling. IV flushed thoroughly pre- and post-medication administration. IVP given by RN. Information reviewed with patient including reason for taking this medication, signs of allergic reaction and precautions. Verbalizes understanding. --14:56 05/02/21 Alexandra Millan R.N. Cardiac rhythm: normal sinus rhythm. monitoring tech, NIBP monitor and pulse oximeter placed on patient; teletypesetter monitor- Lead II; monitor alarms on; monitor strip added to paper chart. Patient gowned. Head of bed elevated 75 degrees. Two patient identifiers checked. Call light placed in reach. Side rails up x 2. Bed placed in lowest position. Brakes of bed on. Patient ready for evaluation- chart flagged. --14:59 05/02/21 Simba Wilkinson RN Checked patient name and birthdate. Blood samples drawn by tech. (9470). Portable chest x-ray completed. (2590). --15:00 05/02/21 Simba Wilkinson RN 15:03 05/02/21. BP: 130/86. HR: 105. RR: 27. O2 saturation: 94%. --15:04 05/02/21 [facility] Kae Narvaez ER Tech1 16:00 05/02/21. BP: 133/86. HR: 96. RR: 16. O2 saturation: 95%. 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 ([id number]). --16:08 05/02/21 Simba Wilkinson RN Patient returned from CT by wheelchair with mask and associate professor of radiology. ([id number]). --16:26 05/02/21 Simba Wilkinson RN 4 Clinical Report - Nurses [facility] Emergency Department [address] [place] [address] Phone #: ext- [phone] 05/02/2021 14:03 Patient: EPHRAIM MORTON Sex: M : 1990 Age: 30y 16:59 05/02/21. BP: 155/98. HR: 95. RR: 24. O2 saturation: 97%. --16:59 05/02/21 [facility] [place] [address] Checked patient name and birthdate. Blood samples drawn by tech: [place]. (2516). --17:40 05/02/21 Simba Wilkinson RN 18:01 05/02/21. BP: 161/85. HR: 96. RR: 25. O2 saturation: 97%. --18:02 05/02/21 [facility] Tech 18:57 05/02/21. BP: 142/81. HR: 94. RR: 24. O2 saturation: 98%. --18:58 05/02/21 [facility] Tech.DISPOSITION / DISCHARGE 18:57 05/02/21. BP: 142/81. MAP: 101. HR: 94. RR: 24. O2 saturation: 98% on room air. Temp: 97.1 F (oral). Pain level now: 0/10. --19:21 05/02/21 Simba Wilkinson RN 19:35 05/02/21. Condition at departure: improved and stable. No learning barriers present. Discharge instructions provided and reviewed with the patient and spouse. Patient and spouse verbalized understanding. Written instructions provided in Venezuelan. The patient was discharged by the physician. He was discharged home and accompanied by spouse. He left ambulatory and via private vehicle. Spouse driving. --19:40 05/02/21 Lizbeth Brand R.N.Locked/Released at 05/02/2021 19:41 by Lizbeth Brand R.N. Name Value Range Interpretation Code Description Data Reina rce(s) Supporting Document(s) ID Date Data Source [id number] 05/02/2021 02:06:00 PM EDT [facility] 1 Clinical Report - Physicians/Mid Levels [facility] Emergency Department [address] [place] [address] Phone #: ext- [phone] 05/02/2021 14:03 Patient: EPHRAIM MORTON Sex: M : 1990 Age: 30y Time Seen: 14:05 05/02/2021; initial patient contact. Arrived- By private vehicle. Historian- patient. Disposition decision: 19:27 05/02/2021.HISTORY OF PRESENT ILLNESS Chief Complaint: CHEST PAIN. This started just prior to arrival 45 minutes ago and is still present. It was abrupt in onset and has been constant. Onset during rest. It is described as sharp and it is described as located in the right chest area. At its maximum, severity valdemar cribed as moderate and 7 / 10. When seen in the E.D., severity described as mild and 4 / 10. Modifying factors. Not worsened by anything. Not relieved by anything. The patient has had nausea. No vomiting, difficulty breathing or diaphoresis. (pt also noted that when he has these CP's, he coughs and his GERD seems to flare up when he eats). Similar symptoms previously. Patient has had similar symptoms once. ( in 07/2020, seen at [facility], dxed w sleep apnea and GERD, referred to cardiology in [place], had nml stress test; also put on Omeprazole for new dx of GERD). Recent medical care: Not recently s een/assessed.REVIEW OF SYSTEMSNo fever, chills, pedal edema, calf pain or fainting episodes. No headache, sore throat, blurred vision,abdominal pain or black stools. No difficulty with urination, skin rash, enlarged lymph nodes or joint pain.The patient has had a mild nonproductive cough. All other systems reviewed and are negative.PAST HISTORYProblems:Gastroesophageal Reflux Disease.Right bundle branch block.Hypertension.Sleep Apnea. Additional Surgeries: no known surgeries. Medications: Omeprazole Oral. Naproxen Oral, daily. Lisinopril-hydroCHLOROthiazide Oral (unsure of dose. started last week ). Allergies: No Known Drug Allergy.SOCIAL HISTORY 2 Clinical Report - Physicians/[facility] Emergency Department [address] [place] [address] Phone #: ext- [phone] 05/02/2021 14:03 Patient: EPHRAIM MORTON Sex: M : 1990 Age: 30y Never smoker. No alcohol use or drug use.FAMILY HISTORYNo significant family medical history.ADDITIONAL NOTESThe nursing notes have been reviewed with agreement regarding the chief complaint, HPI, ROS, PMH andpatient medications and allergies.PHYSICAL EXAMVital Signs: 05/02/2021 14:07 BP: 161/100. MAP: 120. HR: 100. RR: 18. O2 saturation: 96%. Temp: 98.9F. Have been reviewed. Oxygen saturation normal.Appearance: Alert. Oriented X3. No acute distress.Eyes: Pupils equal, round and reactive to light. Eyes normal inspection.ENT: Nose normal. Pharynx normal.Neck: Normal inspection. Neck supple.CVS: Tachycardia. Normal heart rhythm. Heart sounds normal. Pulses normal.Respiratory: No respiratory distress. Chest pain reproducible with palpation of the anterior chest wall(right sided). Painless inspiration. Breath sounds normal.Abdomen: Soft and nontender. Bowel sounds normal. No organomegaly. No mass. Femoral pulsesequal.Back: Normal external inspection.Skin: Skin warm and dry. Normal skin color. No rash. Normal skin turgor.Extremities: Extremities exhibit normal ROM. No lower extremity edema. No calf tenderness. No lowerextremity edema.Neuro: Oriented X 3. No motor deficit. No sensory deficit.LABS, X-RAYS, AND EKGEKG: No acute process. No acute ischemia. Tachycardia (104/min). RBBB. Normal ST and T waves.NAD. Prior EKG unavailable. The study has been interpreted contemporaneously by me. The EKGappears to be a good tracing. Interpretation time: 14:07 05/02/2021.Chest X-ray: No acute disease. Views: AP (portable). Technique: poor inspiration. The X-rays wereinterpreted by the radiologist. Interpretation time: 14:38 05/02/2021.CTA Pulmonary Arteries: No evidence of pulmonary embolism. see report; ATX rt base>lt base. TheCTA was performed with contrast. The study was interpreted by the radiologist. Interpretation time:16:50 05/02/2021.Laboratory Tests: Laboratory tests have been ordered, with results reviewed and considered in themedical decision making process. Troponin-T: (MARIA GUADALUPE: 05/02/2021 17:36) ( MsgRcvd 05/02/2021 18:06) Final results Test Result Flag Units (Reference) TROPONIN T <0.01 NG/ML (0.00 - 0.10) TROPONIN T0.1 ng/ml Recommended as the clinical threshold value forTroponin T. CT CTA CHEST NON-CORONARY W CON INC PP: (MARIA GUADALUPE: 05/02/2021 15:09) ( MsgRcvd 05/02/2021 19:19) In Progress 3 Clinical Report - Physicians/Mid Levels [facility] Emergency Department [address] [place] [address] Phone #: ext- [phone] 05/02/2021 14:03 Patient: EPHRAIM MORTON Sex: M : 1990 Age: 30yCT CTA CHEST NON-CORONARY W CON INC PPReason(s): CP, high d-dimerTRANSPORTATION: WC IV? IV?(Yes) O2? Oxygen?(No) Ro Test Result Flag Units (Reference) CT CTA CHEST NON-CORONARY W CON INC [facility] [address] [place] [address] PHONE: [phone] FAX: [phone] -- Name .................. : SELENE ERIC Acct Number.................. : [id number] ROOM. ................. : TR-08 MR Number ................... : [id number] Stay type ............. : E/R Discharge Date......... ... : Admit Date ......... : 05/02/21 Admit Phys .................... : CELIA VALENZUELA Date of ....... : 1990 Family Phys ................... : JASIEL LICONA Phone .................. : [phone] Age ................................ : 30 Film# .................. .:[id number] Sex ................................. : M -- Unsigned transcriptions are preliminary reports and do not represent a medical or legal document CT CTA CHEST NON-CORONARY W C [id number] COMPLETE:05/02/21 17:57 [facility] [address] Reason(s): CP, high d-dimer -- -- -- -- CT CHEST WITH IV CONTRAST -- INDICATION: Chest pain. Elevated d-dimer. Rule out PE. COMPARISON: None CONTRAST: 75 cc Isovue-370 -- One or more of the following dose reduction techniques were utilized in effectively lowering the patient's radiation dose for this examination: Automated Exposure Control, Adjustment of the mA and/or kV according to patient size, or Iterative reconstruction. -- -- FINDINGS: -- VASCULAR: There is adequate visualization of the central pulmonary arterial tree to the segmental branch level. No large central emboli. Peripheral branches are less well enhanced limiting sensitivity. No small peripheral emboli are identified. -- No thoracic aortic aneurysm. Allowing for pulsation artifact dissection. -- LUNGS: Basilar airspace opacity minimal on the left typical of atelectasis. More confluent in the right posterior lateral costophrenic angle probably atelectasis with pneumonia not excluded. -- PLEURA AND PERICARDIUM: No pleural or pericardial effusions. -- MEDIASTINUM AND SHOBHA: Hazy density anterior mediastinum likely residual thymic tissue. -- No adenopathy. -- CHEST WALL: No axillary adenopathy. Skeletal structures are within normal limits. -- Mild multilevel degenerative disc change. Small sclerotic focus in the posterior right T6 vertebral body most likely benign bone island. Mild T10 superior endplate compression does not -- appear acute. -- -- Page 1of 2 4 Clinical Report - Physicians/Mid Levels [facility] Emergency Department [address] [place] [address] Phone #: ext- [phone] 05/02/2021 14:03 Patient: EPHRAIM MORTON Sex: M : 1990 Age: 30[place] [address] PHONE: [phone] FAX: [phone] -- Name .................. : SELENE YE Acct Number.................. : [id number] ROOM. ................. : TR-08 MR Number ................... : [id number] Stay type ............. : E/R Discharge Date......... ... : Admit Date ......... : 05/02/21 Admit Phys .................... : CELIA VALENZUELA Date of ....... : 1990 Family Phys ................... : [employer] Phone .................. : [phone] Age ................................ : 30 Film# .................. .:[id number] Sex ................................. : M -- Unsigned transcriptions are preliminary reports and do not represent a medical or legal document CT CTA CHEST NON-CORONARY Chanel Cha [address] COMPLETE:05/02/21 17:57 [facility] [address] Reason(s): CP, high d-dimer -- -- -- -- UPPER ABDOMEN: Unremarkable. -- IMPRESSION: No pulmonary embolic disease is identified. Bibasilar airspace opacity probably atelectasis. Slightly more confluent on the right with pneumonia not excluded definitively. -- -- Electronically Reviewed and Signed By DCTNAME , SIGNDATE, SCB -- Transcribe Initials: KAI , Transcribe Date: 05/02/21 19:18, Dictation Date: -- -- <<REPDIST>> -- -- -- -- Page 2of 2 --CBC w Diff: (MARIA GUADALUPE: 05/02/2021 14:23) ( MsgRcvd 05/02/2021 14:47) Final results Test Result Flag Units (Reference) CBC W/AUTOMATED DIFF COMPLETE BLOOD COUNT WBC 7.4 10/uL (4.2 - 11.0) RBC 5.70 10/uL (4.50 - 6.30) HEMOGLOBIN 15.9 g/dL (14.0 - 16.0) HEMATOCRIT 46.2 % (41.0 - 51.0) MCV 81.1 fL (80.0 - 94.0) MCH 27.9 pg (27.0 - 34.0) MCHC 34.4 g/dL (31.0 - 36.0) RDW 12.7 % (11.5 - 14.8) PLATELETS 250 10/uL (150 - 450) MPV 9.1 fL (7.4 - 10.4) NEUT 56.5 % (37.0 - 80.0) LYMPH 32.9 % (25.0 - 40.0) MONO 7.6 % (3.0 - 8.0) EOS 2.0 % (0.0 - 7.0) BASO 0.7 % (0.0 - 2.0) 5 Clinical Report - Physicians/Mid Levels [facility] Emergency Department [address] [place] [address] Phone #: ext- [phone] 05/02/2021 14:03 Patient: EPHRAIM MORTON Sex: M : 1990 Age: 30y %IG 0.3 H % (0.0 - 0.0) %NRBC 0.0 % (0.0 - 0.0) #NEUT 4.17 10/uL (2.00 - 6.90) #LYMPH 2.43 10/uL (0.60 - 3.40) #MONO 0.56 10/uL (0.00 - 0.90) #EOS 0.15 10/uL (0.00 - 0.70) #BASO 0.05 10/uL (0.00 - 0.20) #IG 0.02 10/uL (0.00 - 0.10) #NRBC 0.00 10/uL (0.00 - 0.00) MANUAL DIFF NOT INDICATED RBC MORPH NOT INDICATEDCMP: (MARIA GUADALUPE: 05/02/2021 14:23) ( MsgRcvd 05/02/2021 15:09) Final results Test Result Flag Units (Reference) COMPREHENSIVE METABOLIC PANEL COMPREHENSIVE METABOLIC PANEL SODIUM 139 mEq/L (134 - 153) POTASSIUM 4.2 mEq/L (3.6 - 5.0) CHLORIDE 100 mEq/L (98 - 107) CO2 27 MEQ/L (22 - 30) GLUCOSE 106 H MG/DL (70 - 99) BUN 21 MG/DL (7 - 21) CREATININE 1.1 MG/DL (0.7 - 1.5) BUN/CREAT 19 (8 - 27) TOTAL PROTEIN 8.0 G/DL (6.3 - 8.2) ALBUMIN 5.2 H G/DL (3.9 - 5.0) GLOBULIN 2.8 GM/DL (2.4 - 3.2) A/G RATIO 1.9 (0.8 - 2.0) CALCIUM 9.9 MG/DL (8.4 - 10.2) TOTAL BILI 1.0 MG/DL (0.2 - 1.3) ALKALINE PHOS 69 U/L (38 - 126) SGOT/AST 22 U/L (5 - 40) SGPT/ALT 22 U/L (7 - 56) ANION GAP 12.0 mmol/L (8.0 - 16.0) AGE 30 yrs NON-AA GFR >60 mL/min AFR AMER GFR >60 mL/min Male GFR Interprentation 20-49 yrs >60 mL/min Lfbhjn00-95 yrs >56 mL/min Normal 60-69 yrs >49 mL/min Normal 70-79yrs>42 mL/min Normal 80 and above >35 mL/min Normal Female GFRInterpretation 20-39 yrs >60 mL/min Normal 40-49 yrs >58 mL/minNormal 50-59 yrs >51 mL/min Normal 60-69 yrs >45 mL/min Vhozzo01-92 yrs >39 mL/min Normal 80 and above >32 mL/min NormalLipase: (MARIA GUADALUPE: 05/02/2021 14:23) ( MsgRcvd 05/02/2021 15:06) Final results Test Result Flag Units (Reference) LIPASE 25 U/L (13 - 60)PT/PTT: (MARIA GUADALUPE: 05/02/2021 14:23) ( MsgRcvd 05/02/2021 14:52) Final results Test Result Flag Units (Reference) PROTIME 12.2 SECONDS (11.0 - 15.5) INR 0.90 L (0.93 - 1.23) PTT 26.8 SECONDS (24.8 - 36.7) \\BLDo\\INR INTERPRETATION\\BLDx\\ Therapeutic range for Coumadin andrelated oral anticoagulants. -International Normalized Ratio (INR): 2.0 - 3.0 for VenousThrombosis, Pulmonary Embolus, Tissue heart valves, Acute [place] Atrial Fibrillation, Valvular heart diseaseand recurrent Systemic Embolism. -International Normalized Ratio (INR): 2.5 - 3.5 for 6 Clinical Report - Physicians/Mid Levels [facility] Emergency Department [address] [place] [address] Phone #: ext- [phone] 05/02/2021 14:03 Patient: EPHRAIM MORTON Sex: M : 1990 Age: 30yMechanical Prosthetic valve.Troponin-T: (MARIA GUADALUPE: 05/02/2021 14:23) ( MsgRcvd 05/02/2021 15:03) Final results Test Result Flag Units (Reference) TROPONIN T <0.01 NG/ML (0.00 - 0.10) TROPONIN T0.1 ng/ml Recommended as the clinical threshold value forTroponin T.D-Dimer: (MARIA GUADALUPE: 05/02/2021 14:23) ( MsgRcvd 05/02/2021 14:52) Final results Test Result Flag Units (Reference) D-DIMER QUANT 0.54 H ug/mL (0.27 - 0.50)EKG: (MARIA GUADALUPE: 05/02/2021 14:18) ( [facility] 05/02/2021 14:28) In ProgressChest Portable 1 View: (MARIA GUADALUPE: 05/02/2021 14:18) ( [facility] 05/02/2021 18:52) In ProgressCHEST PORTABLEReason(s): Chest PainTRANSPORTATION: P IV? O2? Oxygen?(No) Room: [place] [address] PHONE: [phone] FAX: [phone] Name .................. : SELENE YE Acct Number.................. : [id number] ROOM. ................. : TR-08 Number ................... : [id number] Stay type ............. : E/R Discharge Date......... ... : Admit Date ......... : 05/02/21 Admit Phys .................... : CELIA VALENZUELA Date of ....... : 1990 Family Phys ................... : JASIEL DA Phone .................. : [phone] Age ................................ : 30 Film# .................. .:[id number] Sex ................................. : M Unsigned transcriptions are preliminary reports and do not represent a medical or legal document CHEST PORTABLE [id number] COMPLETE:05/02/21 18:02 AICHA [id number] Reason(s): Chest Pain PORTABLE CHEST SIN GLE VIEW 2:37 PM HISTORY: Chest pain COMPARISON: None. FINDINGS: Mediastinal and hilar structures are normal. Cardiac silhouette is unremarkable. Low inspiratory volume. No pneumonia or edema. No pneumothorax or pleural effusion. IMPRESSION: Low inspiratory volume otherwise unremarkable. 7 Clinical Report - Physicians/Mid Levels [facility] Emergency Department [address] [place] [address] Phone #: ext- [phone] 05/02/2021 14:03 Patient: EPHRAIM MORTON Sex: M : 1990 Age: 30y Electronically Reviewed and Signed By DCTANDI SIGNDATE, MARTIN Transcribe Initials: KAI , Transcribe Date: 05/02/21 18:49, Dictation Date: <<REPDIST>> Page 1 of 1.PROGRESS AND PROCEDURESCourse of Care: 15:09 05/02/21. workup all in and reviewed and nml except d-dimer at 0.54, troponin nml,EKG and CXR nml; will CTA chest, no arrhythmia, feeling much better 16:54 05/02/21. CTA chest is neg. for PE; will repeat troponin 3 hrs after 1st one at 5:30 pm; pt is pain free in ER, no arrhythmia 19:25 05/02/21. repeat 3 hrs troponin results in and nml; pt still asymptomatic; will d/c home w instructions to see Dr. Fischer in next 3 days for stress test; atypical CP, probable non-cardiac; pt understands and agrees. Patient counseled in person regarding the patient's stable condition, test results, diagnosis and need for follow-up. Patient agrees with plan of care. Disposition: Condition: good and stable. Discharge decision based on the fo smallpox hospitalwing: patient's condition is stable; patient's condition is improved; patient is ambulatory; patient is active; patient drinking fluids; patient eating; patient's pain is controlled; patient's exam is improved; no abnormal test results; improving condition on multiple repeat evaluations; social support is good; transportation is available; follow-up is available; clinical impression is consistent with outpatient treatment.CLINICAL IMPRESSION Atypical chest pain (non-cardiac). Gastroesophageal reflux disease. No esophagitis.INSTRUCTIONS 8 Clinical Report - Physicians/Mid Levels [facility] Emergency Department [address] [place] [address] Phone #: ext- [phone] 05/02/2021 14:03 Patient: EPHRAIM MORTON Sex: M : 1990 Age: 30y Avoid stimulants (such as cigarettes, coffee, cold medicines, sinus medicines, street drugs). Follow a low salt diet and low cholesterol diet. Do not smoke. No alcohol. Warnings: Further evaluation is necessary in order to conduct further tests (CARDIOLOGY). It is very important to follow up with a healthcare provider. GENERAL WARNINGS: Return or contact your physician immediately if your condition worsens or changes unexpectedly, if not improving as expected, or if other problems arise. SPECIFICALLY, return if you develop chest, neck, jaw, shoulder, arm, or back pain, difficulty breathing, a fluttering sensation in your chest, lightheadedness, fainting, excessive fatigue, or sudden sweating. Your Current Medications: Your current home medications have been reviewed. CONTINUE TAKING THE FOLLOWING MEDICATIONS: Lisinopril-hydroCHLOROthiazide Oral : unsure of dose. started last week. Naproxen Oral : daily. Omeprazole Oral. Follow-up: Return to the emergency department as needed. Follow up with a tunnel elastic operator zigzag in three days even if well. Call for an appointment. Reason for referral: evaluation and treatment. Summary of care provided to patient via paper. Understanding of the discharge instructions verbalized by patient. Expected course of illness, discharge instructions, activity level, diet, follow-up appointment and risks and benefits of treatment reviewed with patient and spouse and understanding verbalized. Agrees to plan of care. Follow-up with: Aaron Fischer MD, Cardiology, , [address] [place] [address], [id number] Follow up in three days even if well. Call for an appointment. Reason for referral: evaluation, treatment and STRESS TEST. Summary of care provided to patient via pap er.(Electronically signed by Reji Yang M.D. 05/02/2021 20:24) Name Value Range Interpretation Code Description Data Reina rce(s) Supporting Document(s) ID Date Data Source [id number] 05/02/2021 08:20:00 PM EDT [address] [address] RESPIRATORY CARE REPORT ==== ---------NAME------- NUMBER SEX AGE ADMIT DISC. XRAY# F/C TYPEAGUINAGA EPHRAIM [id number] M 30 05/02/21 05/02/21 [id number] SB4 E/R DATE OF : 1990 M/R# [id number] #: [id number] TR-08 LOCATION: EMERGENCY DEPT [facility] [address] COMP LETE:05/02/21 14:27 ED [address] PHYSICIAN: CELIA VALENZUELA Name Value Range Interpretation Code Description Data Reina rce(s) Supporting Document(s) ID Date Data Source [id number] 05/02/2021 06:06:00 PM EDT [facility] Name Value Range Interpretation Code Description Data Reina rce(s) Supporting Document(s) TROPONIN T <0.01 NG/ML 0.00 - 0.10 [facility] TROPONIN T0.1 ng/ml Recommended as the c linical threshold value forTroponin T. ID Date Data Source [id number] 05/02/2021 03:09:00 PM EDT [facility] Name Value Range Interpretation Code Description Data [facility] rce(s) Supporting Document(s) COMPREHENSIVE METABOLIC PANEL [facility] COMPREHENSIVE METABOLIC PANEL Sodium [Moles/volume] in Serum or Plasma 139 mEq/L 134 - 153 [facility] Potassium [Moles/volume] in Serum or Plasma 4.2 mEq/L 3.6 - 5.0 [facility] Chloride [Moles/volume] in Serum or Plasma 100 mEq/L 98 - 107 [facility] Carbon dioxide, total [Moles/volume] in Serum or Plasma 27 MEQ/L 22 - 30 [facility] Glucose [Mass/volume] in Serum or Plasma 106 MG/DL 70 - 99 [facility] BUN 21 MG/DL 7 - 21 [facility] Creatinine [Mass/volume] in Serum or Plasma 1.1 MG/DL 0.7 - 1.5 [facility] BUN/CREAT 19 8 - 27 [facility] al Protein [Mass/volume] in Serum or Plasma 8.0 G/DL 6.3 - 8.2 [facility] Albumin [Mass/volume] in Serum or Plasma 5.2 G/DL 3.9 - 5.0 [facility] Globulin [Mass/volume] in Serum by calculation 2.8 GM/DL 2.4 - 3.2 [facility] A/G RATIO 1.9 0.8 - 2.0 [facility] al Calcium [Mass/volume] in Serum or Plasma 9.9 MG/DL 8.4 - 10.2 [facility] Bilirubin.total [Mass/volume] in Serum or Plasma 1.0 MG/DL 0.2 - 1.3 [facility] Alkaline phosphatase [Enzymatic activity/volume] in Serum or Plasma 69 U/L 38 - 126 [facility] Aspartate aminotransferase [Enzymatic activity/volume] in Serum or Plasma 22 U/L 5 - 40 [facility] Alanine aminotransferase [Enzymatic activity/volume] in Seru m or Plasma 22 U/L 7 - 56 [facility] Anion gap 3 in Serum or Plasma 12.0 mmol/L 8.0 - 16.0 [facility] AGE 30 yrs [facility] al NON-AA GFR >60 mL/min [facility] ital AFR AMER GFR >60 mL/min [facility] Male GFR In terprentation 20-49 yrs >60 mL/min Normal 50-59 yrs >56 mL/min Normal 60-69 yrs >49 mL/min Normal 70-79yrs >42 mL/min Normal 80 and above >35 mL/min Normal Female GFR Interpretation 20-39 yrs >60 mL/min Normal 40-49 yrs >58 mL/min Normal 50-59 yrs >51 mL/min Normal 60-69 yrs >45 mL/min Normal 70-79 yrs >39 mL/min Normal 80 and above >32 mL/min Normal ID Date Data Source [id number] 05/02/2021 03:05:00 PM EDT [facility] Name Value Range Interpretation Code Description Data Reina rce(s) Supporting Document(s) Lipase [Enzymatic activity/volume] in Serum or Plasma 25 U/L 13 - 60 [facility] ID Date Data Source [id number] 05/02/2021 03:03:00 PM EDT [facility] Name Value Range Interpretation Code Description Data Reina rce(s) Supporting Document(s) TROPONIN T <0.01 NG/ML 0.00 - 0.10 [facility] TROPONIN T0.1 ng/ml Recommended as the c linical threshold value forTroponin T. ID Date Data Source [id number] 05/02/2021 02:51:00 PM EDT [facility] Name Value Range Interpretation Code Description Data [facility](s) Supporting Document(s) Fibrin D-dimer FEU [Mass/volume] in Platelet poor plasma 0.54 ug /mL 0.27 - 0.50 [facility] ID Date Data Source [id number] 05/02/2021 02:51:00 PM EDT [facility] Name Value Range Interpretation Code Description Data Reina rce(s) Supporting Document(s) Prothrombin time (PT) 12.2 SECONDS 11.0 - 15.5 [facility] INR in Platelet poor plasma by Coagulation assay 0.90 0.93 - 1. 23 L [facility] aPTT in Blood by Coagulation assay 26.8 SECONDS 24.8 - 36.7 [facility] \\BLDo\\INR INTERPRETATION\\BLDx\\ Therapeutic range for Coumadin and related oral anticoagulants. - International Normalized Ratio (INR): 2.0 - 3.0 for Venous Thrombosis, Pulmonary Embolus, Tissue heart valves, Acute [place] Atrial Fibrillation, Valvular heart disease and recurrent Systemic Embolism. - International Normalized Ratio (INR): 2.5 - 3.5 for Mechanical Prosthetic valve. ID Date Data Source [id number] 05/02/2021 02:47:00 PM EDT [facility] Name Value Range Interpretation Code Description Data [facility](s) Supporting Document(s) CBC W/AUTOMATED DIFF [facility] COMPLETE BLOOD COUNT Leukocytes [#/volume] in Blood by Automated count 7.4 10^3/uL 4.2 - 1 1.0 [facility] Erythrocytes [#/volume] in Blood by Automated count 5.70 10^6/uL 4. 50 - 6.30 [facility] Hemoglobin [Mass/volume] in Blood 15.9 g/dL 14.0 - 16.0 [facility] Hematocrit [Volume Fraction] of Blood by Automated count 46.2 % 4 1.0 - 51.0 [facility] Erythrocyte mean corpuscular volume [Entitic volume] by Auto mated count 81.1 fL 80.0 - 94.0 [facility] Erythrocyte mean corpuscular hemoglobin [Entitic mass] by Automated count 27.9 pg 27.0 - 34.0 [facility] Erythrocyte mean corpuscular hemoglobin concentration [Mass/volume] by Automated count 34.4 g/dL 31.0 - 36.0 [facility] Erythrocyte distribution width [Ratio] by Automated count 12.7 % 11.5 - 14.8 [facility] Platelets [#/volume] in Blood by Automated count 250 10^3/uL 150 - 45 0 [facility] Platelet mean volume [Entitic volume] in Blood by Automated count 9.1 fL 7.4 - 10.4 [facility] Neutrophils/100 leukocytes in Blood by Automated count 56.5 % 37. 0 - 80.0 [facility] Lymphocytes/100 leukocytes in Blood by Manual count 32.9 % 25.0 - 40.0 [facility] Monocytes/100 leukocytes in Blood by Automated count 7.6 % 3.0 - 8.0 [facility] Eosinophils/100 leukocytes in Blood by Automated count 2.0 % 0.0 - 7.0 [facility] Basophils/100 leukocytes in Blood by Automated count 0.7 % 0.0 - 2.0 [facility] %IG 0.3 % 0.0 - 0.0 [facility] %NRBC 0.0 % 0.0 - 0.0 [facility] al Neutrophils [#/volume] in Blood by Automated count 4.17 10^3/uL 2.00 - 6.90 [facility] Lymphocytes [#/volume] in Blood by Automated count 2.43 10^3/uL 0.60 - 3.40 [facility] Monocytes [#/volume] in Blood by Automated count 0.56 10^3/uL 0.00 - 0.90 [facility] Eosinophils [#/volume] in Blood by Automated count 0.15 10^3/uL 0.00 - 0.70 [facility] Basophils [#/volume] in Blood by Automated count 0.05 10^3/uL 0.00 - 0.20 [facility] #IG 0.02 10^3/uL 0.00 - 0.10 [facility] #NRBC 0.00 10^3/uL 0.00 - 0.00 [facility] MANUAL DIFF NOT INDICATED [facility] RBC MORPH NOT INDICATED [facility] ID Date Data Source [id number] 03/15/2021 10:11:00 AM EDT [facility] [address] [place] [address] PHONE: [phone] FAX: [phone] Name .................. : SELENE YE Acct Number.................. : [id number] ROOM. ................. : MR Number ................... : [id number] Stay type ............. : O/P Discharge Date......... ... : 03/14/21 Admit Date ......... : 03/14/21 Admit Phys .................... : DETTMAN DA Date of ....... : 1990 Family Phys ................... : DETCloud SherpasAN DA Phone .................. : [phone] Age ................................ : 30 Film# .................. .:[id number] Sex ................................. : M Unsigned transcriptions are preliminary reports and do not represent a medical or legal document MRI LOWER EXT W/O CONTRAST [place] [id number] COMPLETE:03/14/21 10:16 COSME [id number] Reason for Exam: S/P RUNNING,POP R MEDICAL CALF SWELLING MRI OF THE RIGHT LEG WITHOUT CONTRAST: TECHNIQUE: Multisequence, multiplanar MRI of the right leg is obtained without the use of intravenous contrast. COMPARISON: None available. FINDINGS: There is a low T1 high T2 signal apparent fluid collection central to the medial limb of the gastrocnemius muscle measuring up to 9.3 cm in craniocaudal dimension, 3.6 cm in AP, but only 7.8 mm in thickness. The exact etiology of this is difficult to determine. There do appear to be mild inflammatory changes in the anteromedial-most aspect of the soleus suggesting what is likely a traumatic myositis. The actual tendons of the medial limb of the gastrocnemius muscle, anterior tibialis muscle and soleus muscles do appear intact. There is mild subcutaneous edema, especially about the posteromedial calf. IMPRESSION: Small focal fluid collection deep to the medial limb of the gastrocnemius muscle with what appears to be associated myositis of the anteromedial-most aspect of the soleus muscle, as described above. Electronically Reviewed and Signed By Melchor Polanco MD , 03/15/21 10:11, AML Transcribe Initials: KAI , Transcribe Date: 03/14/21 11:25, Dictation Date: Copy for: JASIEL JUAREZ Copy for: 710 MED REC Page 1 of 1 Name Value Range Interpretation Code Description Data Reina rce(s) Supporting Document(s) ID Date Data Source [id number] 10/27/2020 07:10:00 PM EST [facility] Name Value Range Interpretation Code Description Data Reina rce(s) Supporting Document(s) [facility]IGEN [facility]GATIVE [facility] This lab was ordered by ALOK dodson nd reported by [facility]. ID Date Data Source [id number] 10/27/2020 02:25:00 PM EST [facility] Name Value Range Interpretation Code Description Data Reina rce(s) Supporting Document(s) Red Blood Count 5.41 4.70-6.20 [facility]) White Blood Count 7.3 4.3-10.9 [facility] ([facility]) Platelets 247 130-400 [facility] ([facility]) Hemoglobin 14.6 13.0-17.0 [facility] ([facility]) Hematocrit 44.5 39.0-50.0 [facility] ([facility]) Procedure Social History Code Duration Value Status Description Data Source(s ) Smoking 11/05/2020 12:00:00 AM EST Patient has never smoked co mpleted Patient has never smoked [facility] ([facility]) Vital Signs ID Date Data Source UNK Name Value Range Interpretation Code Description Data Source(s) Body mass index (BMI) [Ratio] 36.7 kg/m2 36.7 k g/m2 [facility] ([facility]) Systolic blood pressure 124 mm[Hg] 124 mm[Hg] M EDENT ([facility]) Diastolic blood pressure 82 mm[Hg] 82 mm[Hg] [facility] ([facility]) Body height 70 [in_i] 70 [in_i] [facility] ([facility]) 5'10" Body weight 256.00 [lb_av] 256.00 [lb_av] MEDEN T ([facility]) Body weight 116.122 kg 116.122 kg [facility] ([facility]) Body surface area Derived from formula 2.32 m2 2.32 m2 [facility] ([facility]) Labelle body weight 166 [lb_av] 166 [lb_av] MED[facility] T ([facility]) Body height 71 [in_i] 71 [in_i] [facility]) 5'11" Body weight 251.00 [lb_av] 251.00 [lb_av] [facility] T ([facility]) Body mass index (BMI) [Ratio] 35.0 kg/m2 35.0 k g/m2 [facility] ([facility]) Heart rate 108 /min 108 /min [facility]) Systolic blood pressure--sitting 149 mm[Hg] 149 mm[Hg] [facility] ([facility]) Omron, large cuff/Ra Diastolic blood pressure--sitting 89 mm[Hg] 89 mm[Hg] [facility] ([facility]) Omron, large cuff/Ra
--- OUTSIDE RECORDS SUMMARY | 2021-07-16 17:58 | CCD | Continuity of Care Document ---
Author Author Joe CLEVELAND RPA Organization Unknown Address [address] [place] [address], [address] [place] [address] Phone [phone] Care Team Providers Care Compress Engineer Name Role Phone Parmjit Valera P.A.-C. AUTM [phone] Franca Martínez AUTM [phone] Problems Active Problems Provider Date Essential hypertension [...] lb BMI (Body Mass Index) 36.7 kg/m2 [place] Body Weight 166 lb Weight 116.122 kg [...] of Treatment 06/28/2021 - [facility] K21.9 Gastro-esophageal reflux disease without esophagitis * [...] 3 ESTABLISH 04/28/21 TO 04/28/22 Scheduled 06/28/2021 [facility] [address] [facility], [place] [id number] [phone]
--- OUTSIDE RECORDS SUMMARY | 2021-07-16 18:23 | CCD ---
Author Author [facility] Organization [facility] Address Unknown Phone Unavailable Care Team Providers Care Computer Security Specialist Name Role Phone Taran WEATHERS Unavailable Unavailable [...] FABIO MD Unavailable Unavailable ANTECOL, Ruben FABIO GUERRREO Unavailable Unavailable ANTECOL, Ruben FABIO GUERRERO Unavailable [...] is protected by Article 27-F of the [facility] Public Health law. If you continue you may have access to information: Regarding HIV / AIDS; Provided by facilities licensed or operated by the [facility] Office of Mental Health; or Provided by the [facility] Office for People With Developmental Disabilities. If such information is present, then the following [facility] mandated warning applies: This information has been [...] law may result in a fine or mcc sentence or both. A general authorization for the release of medical or other information is NOT sufficient authorization for further disc losure. Encounters Encounter Providers Location Date Indications Data Source(s ) Emergency Attender: REJI YANGConsultant: LARRY BARRETO 05/02/2021 02:06:00 PM EDT - 05/02/2021 07:35:00 PM EDT [facility] Patient discharged. Outpatient Attender: LARRY MADRIDANConsultant: LARRY MADRID AN 03/14/2021 07:17:00 AM EDT - 03/14/2021 08:17:00 AM EDT [facility] Patient discharged. Outpatient Attender: FABIO LOPEZ MD Main Office 11/05/2020 09:00:00 AM EST [facility] ([facility]) Immunizations Vaccine Date Status Description Data Source(s) COVID-19 VACCINE Pfizer 11/10/2020 12:00:00 AM EST completed [facility] Vaccine Series Complete: NOThis Data was Submitted to [facility] Via Meetup. Medications Medication Brand Name Start Date Product Form Dose Route Admi nistrative Instructions Pharmacy Instructions Status Indications Reaction Description Data Source(s) Docusate Sodium 100 MG Oral Capsule [Colace] Colace 12:00:00 AM EDT ORAL active [facility] ( [facility], ) Lisinopril 10 MG Oral Tablet Lisinopril 12/26/2020 12:00:00 AM EDT ORAL active [facility] ([facility]) Omeprazole 40 MG Delayed Release Oral Capsule Omeprazole 11/04/2020 12:00:00 AM EST ORAL active [facility] ([facility]) Ketorolac Tromethamine 10 MG Oral Tablet Ketorolac Trometham ine 11/04/2020 12:00:00 AM EST ORAL active M [facility] ([facility]) Sucralfate 1000 MG Oral Tablet Sucralfate 11/04/2020 12:00:00 AM EST ORAL active [facility] ([facility]) Insurance Providers Payer name Policy type / Coverage type Policy ID Covered green party ID Covered green party's relationship to mckee Policy Mckee Plan Information [facility] [id number] [facility] O/P [id number] Problems, Conditions, and Diagnoses Code Display Name Description Problem Type Effective Dates Data Source(s) I10 Essential (primary) hypertension Essential (primary) h ypertension Diagnosis 05/02/2021 02:06:00 PM EDT [facility] I4519 Other right bundle-branch block Other right bundle-bra nch block Diagnosis 05/02/2021 02:06:00 PM EDT [facility] K219 Gastro-esophageal reflux disease without esophagitis Gastro-esophageal reflux disease without esophagitis Diagnosis 05/02/2021 02:06:00 PM ED T [facility] R0789 Other chest pain Other chest pain Diagnosis 05/02/2021 02 :06:00 PM EDT [facility] R2241 Localized swelling, mass and lump, right lower limb Localized swelling, mass and lump, right lower limb Diagnosis 03/14/2021 07:17:00 AM EDT [facility] [id number] Pain in right lower leg Pain in right lower leg Diagno sis 03/14/2021 07:17:00 AM EDT [facility] [id number] Essential hypertension Essential hypertension Problem 06/10/2021 12:00:00 AM EDT [facility], ) Surgeries/Procedures Procedure Description Date Indications Data Source(s) Polysomnography Sleep Staging 4+ Parameters W/Cpap 03/08/2021 12:00:00 AM EDT [facility] ([facility], ) XTRNL ECG < 48 HR RECORDING 03/03/2021 12:00:00 AM EDT [facility] ([facility]) XTRNL ECG CONTINUOUS RHYTHM PHYS REVIEW&INTERPJ 2020 12:00:00 AM EDT [facility] ([facility]) Polysomnography Sleep Staging 4+ Parameters 01/17/2021 12:00:00 AM EDT [facility] ([facility], ) CV STRS TST XERS&/OR RX CONT ECG PHYS SI&R 01/05/2021 12:00:00 AM EDT [facility] ([facility]) ECHO TTHRC R-T 2D W/WOM-MODE COMPL SPEC&COLR DOP 12/28 12:00:00 AM EDT [facility] ([facility]) Ambulatory Blood Pressure Monitoring;Recording,Scanning,Inte r,RPT 12/27/2020 12:00:00 AM EDT [facility] ([facility]) ECG ROUTINE ECG W/LEAST 12 LDS W/I&R 11/05/2020 12:00: 00 AM EST [facility] ([facility]) Results ID Date Data Source [id number] 05/24/2021 03:18:00 PM EDT [facility] Name Value Range Interpretation Code Description Data Reina rce(s) Supporting Document(s) SARS coronavirus 2 RNA Not Detected [facility] [place] This lab was ordered by [facility] and reported by [facility]. ID Date Data Source [id number] 05/03/2021 08:18:00 AM EDT [facility] [address] [place] [address] PHONE: [phone] FAX: [phone] Name .................. : SELENE YE Acct Number.................. : [id number] ROOM. ................. : [facility] Number ................... : [id number] Stay type ............. : E/R Discharge Date......... ... : Admit Date ......... : 05/02/21 Admit Phys .................... : CELIA VALENZUELA Date of ....... : 1990 Family Phys ................... : JASIEL LICONA Phone .................. : [phone] Age ................................ : 30 Film# .................. .:[id number] Sex ................................. : M Unsigned transcriptions are preliminary reports and do not represent a medical or legal document CT CTA CHEST NON-CORONARY Chanel Cha 24661 COMPLETE:05/02/21 17:57 [facility] 84137 Reason(s): CP, high d-dimer CT CHEST WITH [...] not appear acute. Page 1 of 2 [facility] [address] [place] [address] PHONE: [phone] FAX: [phone] Name .................. : SELENE YE Acct Number.................. : [id number] ROOM. ................. : TR-08 MR Number ................... : [id number] Stay type ............. : E/R Discharge Date......... ... : Admit Date ......... : 05/02/21 Admit Phys .................... : CELIA VALENZUELA Date of ....... : 1990 Family Phys ................... : JASIEL DA Phone .................. : [phone] Age ................................ : 30 Film# .................. .:[id number] Sex ............... .................. : M Unsigned transcriptions are preliminary reports and do not represent a medical or legal document CT CTA CHEST NON-CORONARY W C 28731 COMPLETE:05/02/21 17:57 [facility] 44789 Reason(s): CP, high d-dimer UPPER ABDOMEN: Unremarkable. [...] rce(s) Supporting Document(s) ID Date Data Source [id number] 05/03/2021 08:17:00 AM EDT [facility] [address] [place] [address] PHONE: [phone] FAX: [phone] Name .................. : SELENE YE Acct Number.................. : [id number] ROOM. ................. : [address] Number ................... : [id number] Stay type ............. : E/R Discharge Date......... ... : Admit Date ......... : 05/02/21 Admit Phys .................... : CELIA VALENZUELA Date of ....... : 1990 Family Phys ................... : JASIEL DA Phone .................. : [phone] Age ................................ : 30 Film# .................. .:[id number] Sex ................................. : M Unsigned transcriptions are preliminary reports and do not represent a medical or legal document CHEST PORTABLE 72265 COMPLETE:05/02/21 18:02 [facility] 43906 Reason(s): Chest Pain PORTABLE CHEST SINGLE VIEW [...] rce(s) Supporting Document(s) ID Date Data Source [id number] 05/02/2021 02:06:00 PM EDT [facility] 1 OrderSheet [facility] Emergency Department [address] [place] [address] Phone #: ext- [phone] 05/02/2021 14:03 Patient: [...] Reji Thomas RNINC PP Patti; 2 OrderSheet [facility] Emergency Department [address] [place] [address] Phone #: ext- [phone] 05/02/2021 14:03 Patient: [...] [facility] EDMonitor Reji Yang Tiffany ER M.D.; [id number] Monitor 14:18 05/02/2021 14:30 [facility](continuous) Reji Yang Tiffany ER M.D.; Gcke2TVQ 1 4:18 05/02/2021 14:30 [facility] Reji Yang Tiffany ER M.D.; Tpgz7AZO 14:18 05/02/2021 14:43 Alexandra Millan Riccardo R.N. M.D.;Obtain Old EKG 14:18 05/02/2021 14:43 Alexandra Millan Riccardo R.N. M.D.;Obtain Old Records 14:18 05/02/2021 14:43 Alexandra Millan Riccardo R.N. M.D.;Oxygen titrate to 14:18 05/02/2021 14:43 Alexandra Millan OrderSheet [facility] Emergency Department [address] [place] [address] Phone #: ext- [phone] 05/02/2021 14:03 Patient: EPHRAIM MORTON Sex: M : 1990 Age: 30y92% Reji Yang R.N., M.D.;Pulse oximeter 14:18 05/02/2021 14:30 [facility](Continuous) Reji Yang Tiffany ER M.D.; [id number] Lock 14:18 05/02/2021 14:56 Alexandra Millan Riccardo R.N. M.D.;Vitals 14:18 05/02/2021 14:30 [facility] Reji Yang Tiffany ER M.D.; Tech1[Electronically signed by Lizbeth Brand R.N. (19:41 05/02/2021)][Electronically signed by Reji Yang M.D. (20:24 05/02/2021)][Electronically locked by Lizbeth Brand R.N. (19:41 05/02/2021)] Name Value Range Interpretation Code Description Data Reina rce(s) Supporting Document(s) ID Date Data Source [id number] 05/02/2021 02:06:00 PM EDT [place] [address] Medication Reconciliation Report [facility] Emergency Department [address] [place] [address] Phone #: ext- [phone] 05/02/2021 14:03 Patient: [...] rce(s) Supporting Document(s) ID Date Data Source [id number] 05/02/2021 02:06:00 PM EDT [facility] 1 Medication Administration Record [facility] Emergency Department [address] [place] [address] Phone #: ext- [phone] 05/02/2021 14:03 Patient: EPHRAIM MORTON Sex: M : 1990 Age: 30yWeight: 108.8 kgHeight/Length: 70 inBMI: 34.4ALLERGIES: No Known Drug Allergy Date/Time Medication Administered Medication OrderedGiven ASPIRIN CHEWABLE 81 MG [PO] Aspirin PO Chewable 81 mg 39439:55 05/02/2021 Dose: 324 mg Tablets PO mgAlexandra [...] rce(s) Supporting Document(s) ID Date Data Source [id number] 05/02/2021 02:06:00 PM EDT [facility] 1 General Instructions [facility] Emergency Department [address] [place] [address] Phone #: ext- [phone] 05/02/2021 14:03 Patient: [...] department as needed. Follow up with a trial manager in three days even if well.Call for [...] care.Follow-up with: Aaron Fischer MD, Cardiology, , [address] [place] [address], [address] Follow up in three days even if well. Call for an appointment. Reason for referral: evaluation, treatmentand STRESS TEST. Summary of care provided to patient via paper. ADDITIONAL INFORMATIONNoncardiac Chest Pain 2 General Instructions [facility] Emergency Department [address] [place] [address] Phone #: ext- [phone] 05/02/2021 14:03 Patient: EPHRAIM MORTON Sex: M [...] the ribs (costochondritis) Fibromyalgia 3 General Instructions [facility] Emergency Department [address] [place] [address] Phone #: ext- [phone] 05/02/2021 14:03 Patient: [...] start to feel better in 24 hours.Call [phone] if any of these occur: A change in the type of pain: if it feels different, becomes more severe, lasts longer, or begins to spread into your shoulder, arm, neck, jaw or back Shortness of breath or increased pain with breathing Weakness, dizziness, or fainting Rapid heart beat Crushing sensation in your chest 4 General Instructions [facility] Emergency Department [address] [place] [address] Phone #: ext- [phone] 05/02/2021 14:03 Patient: EPHRAIM MORTON Sex: M : 1990 Age: 30yWhen to seek medical adviceCall your healthcare provider right away if any of these occur: Cough with dark colored sputum (phlegm) or blood Fever of 100.4F (38C) or higher, or as directed by your healthcare provider Swelling, pain or redness in one leg [phone] [employer]. [address] [place] [address]. All rights reserved. This information is not [...] or other serious problems. 5 General Instructions [facility] Emergency Department [address] [place], [place] [address] Phone #: ext- [phone] 05/02/2021 14:03 Patient: [...] for your heart or 6 General Instructions [facility] Emergency Department [address] [place] [address] Phone #: ext- [phone] 05/02/2021 14:03 Patient: [...] the back, neck, shoulder, or arm An hkzh-mzn-faakakz trial of medicine doesn't relieve your symptoms Weight loss that can't be explained Trouble or pain swallowing Frequent vomiting (can't keep down liquids) Blood in the stool or vomit (red or black in color) Feeling weak or dizzy Fever of 100.4F (38C) or higher, or as directed by your healthcare provider 5631-9979 [employer]. [address] [place] [address]. All rights reserved. This information is not intended as asubstitute for professional medical care. Always follow your healthcare professional's instructions. You have been given the following additional information: Chest Pain, Noncardiac GERD (Adult)(Electronically signed by Reji Yang M.D. 05/02/2021 20:24) Name Value Range Interpretation Code Description Data Reina rce(s) Supporting Document(s) ID Date Data Source [id number] 05/02/2021 02:06:00 PM EDT [facility] 1 Clinical Report - Nurses [facility] Emergency Department [address] [place] [address] Phone #: ext- [phone] 05/02/2021 14:03 Patient: [...] similar episodea couple months ago (seen at [facility]) and was referred to cardiology and diagnosed with sleepapnea.). He has had nausea.Treatment STRATEGIC COMMUNICATIONS SPECIALIST:None.SEPSIS SCREEN: SIRS SCREEN NEGATIVE: heart rate greater [...] Petty R.N. 2 Clinical Report - Nurses [facility] Emergency Department [address] [place] [address] Phone #: ext- [phone] 05/02/2021 14:03 Patient: [...] patient. --14:12 05/02/21 Elena Petty R .N.PHYSICAL EGKYFRAFET62:58 05/02/21. Ambulatory to room.GENERAL / NEURO / [...] Wilkinson RN. 3 Clinical Report - Nurses [facility] Emergency Department [address] [place] [address] Phone #: ext- [phone] 05/02/2021 14:03 --------- [...] Millan R.N. Cardiac rhythm: normal sinus rhythm. quality assurance monitor, NIBP monitor and pulse oximeter placed on patient; hall monitor- Lead II; monitor alarms on; monitor [...] and birthdate. Blood samples drawn by tech. (2010). Portable chest x-ray completed. (0930). --15:00 05/02/21 Simba Wilkinson RN 15:03 05/02/21. BP: 130/86. HR: 105. RR: 27. O2 saturation: 94%. --15:04 05/02/21 [facility] Kae Narvaez ER Tech1 16:00 05/02/21. BP: 133/86. HR: 96. RR: 16. O2 saturation: 95%. --16:01 05/02/21 [facility] Kae Narvaez Tech1 Patient transported to [place] by wheelchair with mask and technician preventative medicine. (1536). --16:08 05/02/21 Simba Wilkinson RN Patient returned from CT by wheelchair with mask and technician preventative medicine. (1914). --16:26 05/02/21 Simba Wilkinson RN 4 Clinical Report - Nurses [facility] Emergency Department [address] [place] [address] Phone #: ext- [phone] 05/02/2021 14:03 Patient: EPHRAIM MORTON Sex: M : 1990 Age: 30y 16:59 05/02/21. BP: 155/98. HR: 95. RR: 24. O2 saturation: 97%. --16:59 05/02/21 [facility] [place] [address] Checked patient name and birthdate. Blood samples drawn by tech: [employer]. (7211). --17:40 05/02/21 Simba Wilkinson RN 18:01 05/02/21. BP: 161/85. HR: 96. RR: 25. O2 saturation: 97%. --18:02 05/02/21 [facility] Tech 18:57 05/02/21. BP: 142/81. HR: 94. RR: 24. O2 saturation: 98%. --18:58 05/02/21 [facility] Tech.DISPOSITION / DISCHARGE 18:57 05/02/21. BP: 142/81. MAP: 101. HR: 94. RR: 24. O2 saturation: 98% on room air. Temp: 97.1 F (oral). Pain level now: 0/10. --19:21 05/02/21 Simba Wilkinson RN 19:35 05/02/21. Condition at departure: improved and stable. No learning barriers present. Discharge instructions provided and reviewed with the patient and spouse. Patient and spouse verbalized understanding. Written instructions provided in [place]. The patient was discharged by the physician. He was discharged home and accompanied by spouse. He left ambulatory and via private vehicle. Spouse driving. --19:40 05/02/21 Lizbeth Brand R.N.Locked/Released at 05/02/2021 19:41 by Lizbeth Brand R.N. Name Value Range Interpretation Code Description Data Reina rce(s) Supporting Document(s) ID Date Data Source [id number] 05/02/2021 02:06:00 PM EDT [facility] 1 Clinical Report - Physicians/Mid Levels [facility] Emergency Department [address] [place] [address] Phone #: ext- [phone] 05/02/2021 14:03 Patient: [...] symptoms once. ( in 07/2020, seen at [facility], dxed w sleep apnea and GERD, referred to cardiology in [place], had nml stress test; also put on [...] Allergy.SOCIAL HISTORY 2 Clinical Report - Physicians/[facility] Emergency Department [address] [place] [address] Phone #: ext- [phone] 05/02/2021 14:03 Patient: [...] Progress 3 Clinical Report - Physicians/Mid Levels [facility] Emergency Department [address] [place] [address] Phone #: ext- [phone] 05/02/2021 14:03 Patient: EPHRAIM MORTON Sex: M : 1990 Age: 30yCT CTA CHEST NON-CORONARY W CON INC PPReason(s): CP, high d-dimerTRANSPORTATION: WC IV? IV?(Yes) O2? Oxygen?(No) Ro Test Result Flag Units (Reference) CT CTA CHEST NON-CORONARY W CON INC [facility] [address] [place] [address] PHONE: [phone] FAX: [phone] -- Name .................. : SELENE ERIC Acct Number.................. : [id number] ROOM. ................. : TR-08 MR Number ................... : [id number] Stay type ............. : E/R Discharge Date......... ... : Admit Date ......... : 05/02/21 Admit Phys .................... : CELIA VALENZUELA Date of ....... : 1990 Family Phys ................... : JASIEL LICONA Phone .................. : [phone] Age ................................ : 30 Film# .................. .:[id number] Sex ................................. : M -- Unsigned transcriptions are preliminary reports and do not represent a medical or legal document CT CTA CHEST NON-CORONARY W C 31083 COMPLETE:05/02/21 17:57 [facility] 92648 Reason(s): CP, high d-dimer -- -- -- [...] 2 4 Clinical Report - Physicians/Mid Levels [facility] Emergency Department [address] [place] [address] Phone #: ext- [phone] 05/02/2021 14:03 Patient: EPHRAIM MORTON Sex: M : 1990 Age: 30[place] [address] PHONE: [phone] FAX: [phone] -- Name .................. : SELENE YE Acct Number.................. : [id number] ROOM. ................. : TR-08 MR Number ................... : [id number] Stay type ............. : E/R Discharge Date......... ... : Admit Date ......... : 05/02/21 Admit Phys .................... : CELIA VALENZUELA Date of ....... : 1990 Family Phys ................... : [employer] Phone .................. : [phone] Age ................................ : 30 Film# .................. .:[id number] Sex ................................. : M -- Unsigned transcriptions are preliminary reports and do not represent a medical or legal document CT CTA CHEST NON-CORONARY Chanel Cha 30478 COMPLETE:05/02/21 17:57 [facility] 27035 Reason(s): CP, high d-dimer -- -- -- [...] 2.0) 5 Clinical Report - Physicians/Mid Levels [facility] Emergency Department [address] [place] [address] Phone #: ext- [phone] 05/02/2021 14:03 Patient: [...] Male GFR Interprentation 20-49 yrs >60 mL/min Skcaxg17-93 yrs >56 mL/min Normal 60-69 yrs >49 mL/min Normal 70-79yrs>42 mL/min Normal 80 and above >35 mL/min Normal Female GFRInterpretation 20-39 yrs >60 mL/min Normal 40-49 yrs >58 mL/minNormal 50-59 yrs >51 mL/min Normal 60-69 yrs >45 mL/min Qvhynq70-08 yrs >39 mL/min Normal 80 and above [...] VenousThrombosis, Pulmonary Embolus, Tissue heart valves, Acute [place] Atrial Fibrillation, Valvular heart diseaseand recurrent Systemic Embolism. -International Normalized Ratio (INR): 2.5 - 3.5 for 6 Clinical Report - Physicians/Mid Levels [facility] Emergency Department [address] [place] [address] Phone #: ext- [phone] 05/02/2021 14:03 Patient: [...] - 0.50)EKG: (MARIA GUADALUPE: 05/02/2021 14:18) [facility] 14:28) In ProgressChest Portable 1 View: (MARIA GUADALUPE: 05/02/2021 14:18) ( [facility] 05/02/2021 18:52) In ProgressCHEST PORTABLEReason(s): Chest PainTRANSPORTATION: P IV? O2? Oxygen?(No) Room: [place] [address] PHONE: [phone] FAX: [phone] Name .................. : SELENE YE Acct Number.................. : [id number] ROOM. ................. : TR-08 Number ................... : [id number] Stay type ............. : E/R Discharge Date......... ... : Admit Date ......... : 05/02/21 Admit Phys .................... : CELIA VALENZUELA Date of ....... : 1990 Family Phys ................... : JASEIL DA Phone .................. : [phone] Age ................................ : 30 Film# .................. .:[id number] Sex ................................. : M Unsigned transcriptions are preliminary reports and do not represent a medical or legal document CHEST PORTABLE 90537 COMPLETE:05/02/21 18:02 [facility] 95417 Reason(s): Chest Pain PORTABLE CHEST SIN GLE VIEW 2:37 PM HISTORY: Chest pain COMPARISON: None. FINDINGS: Mediastinal and hilar structures are normal. Cardiac silhouette is unremarkable. Low inspiratory volume. No pneumonia or edema. No pneumothorax or pleural effusion. IMPRESSION: Low inspiratory volume otherwise unremarkable. 7 Clinical Report - Physicians/Mid Levels [facility] Emergency Department [address] [place] [address] Phone #: ext- [phone] 05/02/2021 14:03 Patient: EPHRAIM MORTON Sex: M [...] stable. [facility]: patient's condition is stable; patient's condition [...] esophagitis.INSTRUCTIONS 8 Clinical Report - Physicians/Mid Levels [facility] Emergency Department [address] [place] [address] Phone #: ext- [phone] 05/02/2021 14:03 Patient: EPHRAIM MORTON Sex: M [...] department as needed. Follow up with a trial manager in three days even if well. Call [...] Follow-up with: Aaron Fischer MD, Cardiology, , [address] [place] [address], [address] Follow up in three days even if well. Call for an appointment. Reason for referral: evaluation, treatment and STRESS TEST. Summary of care provided to patient via pap er.(Electronically signed by Reji Yang M.D. 05/02/2021 20:24) Name Value Range Interpretation Code Description Data Reina rce(s) Supporting Document(s) ID Date Data Source [id number] 05/02/2021 08:20:00 PM EDT [address] [address] RESPIRATORY CARE REPORT ==== ---------NAME------- NUMBER SEX AGE ADMIT DISC. XRAY# F/C TYPEAGUINAGA EPHRAIM [id number] M 30 05/02/21 05/02/21 [id number] SB4 E/R DATE OF : 1990 M/R# [id number] #: [id number] TR-08 LOCATION: EMERGENCY DEPT [facility] [address] COMP LETE:05/02/21 14:27 ED [id number] PHYSICIAN: CELIA VALENZUELA Name Value Range Interpretation Code Description Data Reina rce(s) Supporting Document(s) ID Date Data Source [id number] 05/02/2021 06:06:00 PM EDT [facility] Name Value Range Interpretation Code Description Data Reina rce(s) Supporting Document(s) TROPONIN T <0.01 NG/ML 0.00 - 0.10 [facility] TROPONIN T0.1 ng/ml Recommended as the c linical threshold value forTroponin T. ID Date Data Source [id number] 05/02/2021 03:09:00 PM EDT [facility] Name Value Range Interpretation Code Description Data [facility] rce(s) Supporting Document(s) COMPREHENSIVE METABOLIC PANEL [facility] COMPREHENSIVE METABOLIC PANEL Sodium [Moles/volume] in Serum or Plasma 139 mEq/L 134 - 153 [facility] Potassium [Moles/volume] in Serum or Plasma 4.2 mEq/L 3.6 - 5.0 [facility] Chloride [Moles/volume] in Serum or Plasma 100 mEq/L 98 - 107 [facility] Carbon dioxide, total [Moles/volume] in Serum or Plasma 27 MEQ/L 22 - 30 [facility] Glucose [Mass/volume] in Serum or Plasma 106 MG/DL 70 - 99 H [facility] BUN 21 MG/DL 7 - 21 [facility] Creatinine [Mass/volume] in Serum or Plasma 1.1 MG/DL 0.7 - 1.5 [facility] BUN/CREAT 19 8 - 27 [facility] al Protein [Mass/volume] in Serum or Plasma 8.0 G/DL 6.3 - 8.2 [facility] Albumin [Mass/volume] in Serum or Plasma 5.2 G/DL 3.9 - 5.0 H [facility] Globulin [Mass/volume] in Serum by calculation 2.8 GM/DL 2.4 - 3.2 [facility] A/G RATIO 1.9 0.8 - 2.0 [facility] Calcium [Mass/volume] in Serum or Plasma 9.9 MG/DL 8.4 - 10.2 [facility] Bilirubin.total [Mass/volume] in Serum or Plasma 1.0 MG/DL 0.2 - 1.3 [facility] Alkaline phosphatase [Enzymatic activity/volume] in Serum or Plasma 69 U/L 38 - 126 [facility] Aspartate aminotransferase [Enzymatic activity/volume] in Serum or Plasma 22 U/L 5 - 40 [facility] Alanine aminotransferase [Enzymatic activity/volume] in Seru m or Plasma 22 U/L 7 - 56 [facility] Anion gap 3 in Serum or Plasma 12.0 mmol/L 8.0 - 16.0 [facility] AGE 30 yrs [facility] al NON-AA GFR >60 mL/min [facility] ital AFR AMER GFR >60 mL/min [facility] Male GFR In terprentation 20-49 [...] >32 mL/min Normal ID Date Data Source [id number] 05/02/2021 03:05:00 PM EDT [facility] Name Value Range Interpretation Code Description Data Reina rce(s) Supporting Document(s) Lipase [Enzymatic activity/volume] in Serum or Plasma 25 U/L 13 - 60 [facility] ID Date Data Source [id number] 05/02/2021 03:03:00 PM EDT [facility] Name Value Range Interpretation Code Description Data Reina rce(s) Supporting Document(s) TROPONIN T <0.01 NG/ML 0.00 - 0.10 [facility] TROPONIN T0.1 ng/ml Recommended as the c linical threshold value forTroponin T. ID Date Data Source [id number] 05/02/2021 02:51:00 PM EDT [facility] Name Value Range Interpretation Code Description Data [facility](s) Supporting Document(s) Fibrin D-dimer FEU [Mass/volume] in Platelet poor plasma 0.54 ug /mL 0.27 - 0.50 H [facility] ID Date Data Source [id number] 05/02/2021 02:51:00 PM EDT [facility] Name Value Range Interpretation Code Description Data Reina rce(s) Supporting Document(s) Prothrombin time (PT) 12.2 SECONDS 11.0 - 15.5 [facility] INR in Platelet poor plasma by Coagulation assay 0.90 0.93 - 1. 23 L [facility] aPTT in Blood by Coagulation assay 26.8 SECONDS 24.8 - 36.7 [facility] \\BLDo\\INR INTERPRETATION\\BLDx\\ Therapeutic range for Coumadin and related oral anticoagulants. - International Normalized Ratio (INR): 2.0 - 3.0 for Venous Thrombosis, Pulmonary Embolus, Tissue heart valves, Acute [place] Atrial Fibrillation, Valvular heart disease and recurrent Systemic Embolism. - International Normalized Ratio (INR): 2.5 - 3.5 for Mechanical Prosthetic valve. ID Date Data Source [id number] 05/02/2021 02:47:00 PM EDT [facility] Name Value Range Interpretation Code Description Data [facility](s) Supporting Document(s) CBC W/AUTOMATED DIFF [facility] COMPLETE BLOOD COUNT Leukocytes [#/volume] in Blood by Automated count 7.4 10^3/uL 4.2 - 1 1.0 [facility] Erythrocytes [#/volume] in Blood by Automated count 5.70 10^6/uL 4. 50 - 6.30 [facility] Hemoglobin [Mass/volume] in Blood 15.9 g/dL 14.0 - 16.0 [facility] Hematocrit [Volume Fraction] of Blood by Automated count 46.2 % 4 1.0 - 51.0 [facility] Erythrocyte mean corpuscular volume [Entitic volume] by Auto mated count 81.1 fL 80.0 - 94.0 [facility] Erythrocyte mean corpuscular hemoglobin [Entitic mass] by Automated count 27.9 pg 27.0 - 34.0 [facility] Erythrocyte mean corpuscular hemoglobin concentration [Mass/volume] by Automated count 34.4 g/dL 31.0 - 36.0 [facility] Erythrocyte distribution width [Ratio] by Automated count 12.7 % 11.5 - 14.8 [facility] Platelets [#/volume] in Blood by Automated count 250 10^3/uL 150 - 45 0 [facility] Platelet mean volume [Entitic volume] in Blood by Automated count 9.1 fL 7.4 - 10.4 [facility] Neutrophils/100 leukocytes in Blood by Automated count 56.5 % 37. 0 - 80.0 [facility] Lymphocytes/100 leukocytes in Blood by Manual count 32.9 % 25.0 - 40.0 [facility] Monocytes/100 leukocytes in Blood by Automated count 7.6 % 3.0 - 8.0 [facility] Eosinophils/100 leukocytes in Blood by Automated count 2.0 % 0.0 - 7.0 [facility] Basophils/100 leukocytes in Blood by Automated count 0.7 % 0.0 - 2.0 [facility] %IG 0.3 % 0.0 - 0.0 [facility] %NRBC 0.0 % 0.0 - 0.0 [facility] al Neutrophils [#/volume] in Blood by Automated count 4.17 10^3/uL 2.00 - 6.90 [facility] Lymphocytes [#/volume] in Blood by Automated count 2.43 10^3/uL 0.60 - 3.40 [facility] Monocytes [#/volume] in Blood by Automated count 0.56 10^3/uL 0.00 - 0.90 [facility] Eosinophils [#/volume] in Blood by Automated count 0.15 10^3/uL 0.00 - 0.70 [facility] Basophils [#/volume] in Blood by Automated count 0.05 10^3/uL 0.00 - 0.20 [facility] #IG 0.02 10^3/uL 0.00 - 0.10 [facility] #NRBC 0.00 10^3/uL 0.00 - 0.00 [facility] MANUAL DIFF NOT INDICATED [facility] RBC MORPH NOT INDICATED [facility] ID Date Data Source [id number] 03/15/2021 10:11:00 AM EDT [facility] [address] [address] PHONE: [phone] FAX: [phone] Name .................. : SELENE YE Acct Number.................. : [id number] ROOM. ................. : MR Number ................... : [id number] Stay type ............. : O/P Discharge Date......... ... : 03/14/21 Admit Date ......... : 03/14/21 Admit Phys .................... : DETTMAN DA Date of ....... : 1990 Family Phys ................... : [employer] DA Phone .................. : [phone] Age ................................ : 30 Film# .................. .:[id number] Sex ................................. : M Unsigned transcriptions are preliminary reports and do not represent a medical or legal document MRI LOWER EXT W/O CONTRAST RT [id number] COMPLETE:03/14/21 10:16 COSME [id number] Reason for Exam: S/P RUNNING,POP R MEDICAL [...] rce(s) Supporting Document(s) ID Date Data Source [id number] 10/27/2020 07:10:00 PM EST [facility] Name Value Range Interpretation Code Description Data Reina rce(s) Supporting Document(s) SARS COVID ANTIGEN NEGATIVE [facility] This lab was ordered by ALOK dodson nd reported by [facility]. ID Date Data Source [id number] 10/27/2020 02:25:00 PM EST [facility] Name Value Range Interpretation Code Description Data Reina rce(s) Supporting Document(s) Red Blood Count 5.41 4.70-6.20 [facility] White Blood Count 7.3 4.3-10.9 [facility] Platelets 247 130-400 [facility] Hemoglobin 14.6 13.0-17.0 [facility]) Hematocrit 44.5 39.0-50.0 [facility]) Procedure Social History Code Duration Value Status Description Data Source(s ) Smoking 11/05/2020 12:00:00 AM EST Patient has never smoked co mpleted Patient has never smoked [facility]) Vital Signs ID Date Data Source UNK Name Value Range Interpretation Code Description Data Source(s) Systolic blood pressure 124 mm[Hg] 124 mm[Hg] M [facility] ([facility]) Diastolic blood pressure 82 mm[Hg] 82 mm[Hg] [facility] ([facility]) Body mass index (BMI) [Ratio] 36.7 kg/m2 36.7 k g/m2 [facility] ([facility]) [place] body weight 166 [lb_av] 166 [lb_av] [facility] T ([facility]) Body height 70 [in_i] 70 [in_i] [facility] ([facility]) 5'10" Body weight 256.00 [lb_av] 256.00 [lb_av] [facility] T ([facility]) Body weight 116.122 kg 116.122 kg [facility] ([facility]) Body surface area Derived from formula 2.32 m2 2.32 m2 [facility] ([facility]) Body height 71 [in_i] 71 [in_i] [facility]) 5'11" Systolic blood pressure--sitting 149 mm[Hg] 149 mm[Hg] [facility] ([facility]) Omron, large cuff/Ra Diastolic blood pressure--sitting 89 mm[Hg] 89 mm[Hg] [facility]) Omron, large cuff/Ra Body weight 251.00 [lb_av] 251.00 [lb_av] [facility] T ([facility]) Body mass index (BMI) [Ratio] 35.0 kg/m2 35.0 k g/m2 [facility] ([facility]) Heart rate 108 /min 108 /min [facility])
[2021-07-16] MEDS ORDERED: methocarbamoL 750 MG TAB PO ONE (18:40)
[2021-07-16] MEDS ORDERED: KETOROLAC 60MG 2ML VIAL IM ONE (18:40)
--- NOTE | 2021-07-16 19:56 | REP ---
INDICATION: pain rad to right leg Nontraumatic hip pain. COMPARISON: None. TECHNIQUE: Frontal view of the pelvis with neutral and frog lateral views of the right hip. FINDINGS: Osseous structures and joint spaces are intact and normal. Hip joints appear symmetric on frontal pelvic radiograph. No acute fracture dislocation. No evidence for healed injury. No significant degenerative or congenital abnormalities are appreciated. Surrounding soft tissues are unremarkable. IMPRESSION: Normal pelvis and right hip series. <Electronically signed by Pablo Riggins > 07/16/211951
--- NOTE | 2021-07-16 19:56 | REP ---
INDICATION: pain rad to right leg COMPARISON: None. TECHNIQUE: AP, lateral, flexion/extension, bilateral oblique, and coned-down views. FINDINGS: Alignment and lordosis is maintained. The vertebral bodies including transverse process and spinous processes are intact and normal. There is no evidence for acute fracture / compression injury or subluxation. No evidence for spondylolysis or spondylolisthesis. No significant degenerative change is noted. IMPRESSION: Normal age-appropriate lumbosacral spine radiograph series. <Electronically signed by Pablo Riggins > 07/16/211952
[2021-07-16] MEDS ORDERED: NAPR-837 PO (20:33)
[2021-07-16] MEDS ORDERED: METH-1165 PO (20:33)
[2021-07-16 20:38] VITALS: BP 170/84
== END 2021-07-16 20:40 | disposition home or self-care (01) ==
LOC: M ED 17:53
DX: M54.50 Low back pain, unspecified (principal)
CPT/HCPCS: 72114; 73502; 96372; 99283; J1885

== ENCOUNTER 2021-08-15 12:25 | Day surgery (SDC) | payer OTHER ==
[~2021-08-15] VITALS: Ht 177.8 cm; Wt 117.4 kg
[~2021-08-15 12:25] MED LIST changes: +COLA100C5 PO; +ECOT81TA5 PO; +LISI20TA35 PO; +METH-1165 PO; +NAPR-837 PO; +NS 1,000 ML IV ONE
[2021-08-15] MEDS ORDERED: propofoL 200 MG/20 ML VIAL As Ordered ONE (14:46)
[2021-08-15] MEDS ORDERED: LIDOCAINE 2% 100MG/5ML SDV (FOR ANES.) As Ordered ONE (14:46)
[2021-08-15] MEDS ORDERED: fentaNYL 100 MCG/2 ML INJECTION As Ordered ONE (14:46)
[2021-08-15 15:20] VITALS: BP 132/83
== END 2021-08-15 15:43 | disposition home or self-care (01) ==
LOC: M OPP 12:25
PROVIDERS: ATTEND Internal Medicine Gastroenterology
DX: K29.70 Gastritis, unspecified, without bleeding (principal); K22.89 Other specified disease of esophagus; R10.13 Epigastric pain
CPT/HCPCS: 43239; 88305; J3010

== ENCOUNTER → 2021-08-31 | Outpatient (CLI) | payer OTHER ==
[~2021-08-31] MED LIST changes: -NS 1,000 ML IV ONE
== END ==
LOC: M RAD 07:34
PROVIDERS: ATTEND Physician Assistant Medical
DX: R10.11 Right upper quadrant pain (principal)

== ENCOUNTER → 2022-03-21 | Outpatient (REF) | LOC: M PLAIMG 09:50 | PROVIDERS: ATTEND Internal Medicine | DX: R06.02 Shortness of breath (principal) ==